=== PATIENT | male | born 1970 | race Caucasian/White ===

== ENCOUNTER 2021-02-20 13:41 | Outpatient (REF) | payer BC, SELFPAY ==
--- NOTE | ~2021-02-20 | XR_ITS ---
EXAMINATION: XR ANKLE, RIGHT CLINICAL INFORMATION: Pain COMPARISON: Previous x-ray July 2018 TECHNIQUE: AP, lateral, and mortise views of the right ankle. FINDINGS: Bone alignment is normal. No fracture or dislocation is seen. The ankle mortise is normal. There is a small osteophyte or accessory ossicle projecting over the posterior inferior talus. Soft tissues are unremarkable. XR/XR ankle RT min 3V IMPRESSION: Question small osteophyte or accessory ossicle projecting over the posterior inferior talus otherwise unremarkable exam.
== END 2021-02-20 13:42 | disposition home or self-care (01) ==
LOC: HO.HOSX 13:41
PROVIDERS: Visit Provider Physician Assistant
DX: M76.71 Peroneal tendinitis, right leg (principal)
CPT/HCPCS: 73610

== ENCOUNTER 2021-06-02 10:00 | Outpatient (RCR) | payer BC, SELFPAY ==
--- NOTE | 2021-04-14 11:53 | MHC.PT.EP ---
[facility] [place] [facility] [place] [facility] [place] [facility] [address] Eduarda Barrientos [address] [phone] F: [phone] F: [phone] F: [phone] F: [phone] Physical Therapy Plan of Care Date of Evaluation: Date of Surgery: n/a Diagnosis: peroneal tendonitis R Assessment: Patient is a 51 year old male presenting to PT with complaints of pain in his R lateral ankle. Pt reports onset of pain began worsening about 6 months ago due to insidious onset. He presents today with impairments in pain, ankle ROM, ankle strength, balance, gastroc muscle length, and hip strength. 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 Pt expresses long term care social worker goal of reducing pain, and is motivated to work towards this in PT. Clinical presentation today is most consistent with signs and sx associated with possible R peroneal tendonitis and pt will benefit from skilled PT to address the following problems and impairments noted upon evaluation: pain, ankle ROM, ankle strength, balance, gastroc muscle length, and hip strength. These problems limit the patient with the following functional activities: ambulation and sleep. The prescribed treatment plan of care is medically necessary. Co-morbidities of none were identified and taken into considerations of plan of care. Pt was educated on HEP, role of PT, prognosis, POC. Frequency and Duration: The patient will be seen 1 x week x 4 weeks Short Term Goals: Pt will demonstrate improved R ankle strength by 1/3 MMT in 2 weeks. Pt will demonstrate ability to SLS on R x 20 sec with min to mod ankle strategy in 2 weeks. Pt will demonstrate R ankle ROM equal B in 2 weeks for improved gait mechanics. Pt will demonstrate improved hip strength by 1/3 MMT in 2 weeks for improved lumbopelvic stability. Shelter Goals: Pt will demonstrate ability to ambulate with min to no pain in 4 weeks for improved tolerance to work. Pt will demonstrate ability to sleep through the night with min to no pain in 4 weeks for improved QOL. Pt will demonstrate improved LEFI score by 9 points in 4 weeks for improved functional mobility. Treatment Plan: Modalities to reduce pain, spasms and effusion. Manual therapy to restore motion and function. Therapeutic exercise to improve strength and flexibility. Neuromuscular re-education for posture and balance. Therapeutic activities to return to functional activities of daily living. Electronically signed by: Seema Lindsey, PT, DPT, ATC Please sign and return to therapist. Thank you for your referral.
== END 2021-11-07 09:51 | disposition home or self-care (01) ==
LOC: HO.PT 10:00
PROVIDERS: PCP Internal Medicine; Visit Provider Physician Assistant
DX: M76.71 Peroneal tendinitis, right leg (principal)
CPT/HCPCS: 97110; 97140; 97161; 97530

== ENCOUNTER 2021-11-10 09:29 | Outpatient (REF) | payer BC, SELFPAY ==
[2021-11-10 09:55] LABS: MANUAL DIFF FLAG NO
[2021-11-10 10:32] LABS: Basophils Percent Auto 0.8 % (0-2); Eosinophils Absolute Auto 0.2 X10*3/uL (0.0-0.4); Hemoglobin 14.9 g/dl (14.0-18.0); Imm Gran Abs Auto 0.02 X10*3/uL (0.00-0.03); Imm Gran Pct Auto 0.4 % (0.0-0.4); Lymphocytes Absolute Auto 1.3 X10*3/uL (1.2-4.9); Lymphocytes Percent Auto 27.6 % (20-40); Mean Corpuscular HGB Conc 33.1 g/dl (31.0-36.0); Mean Corpuscular Hemoglobin 27.9 pg (27.0-33.0); Mean Corpuscular Volume 84.1 fL (80.0-98.0); Mean Platelet Volume 8.9 fL (9.4-12.4); Monocytes Absolute Auto 0.4 X10*3/uL (0.1-1.2); Neutrophils Absolute Auto 2.8 x10*3/uL (2.0-8.3); Neutrophils Percent Auto 58.2 % (45-73); Platelet Count 312 X10*3/uL (160-400); Red Blood Count 5.35 X10*6/uL (4.60-5.80); Red Cell Distribution Width 13.8 % (11.0-16.0); White Blood Count 4.8 X10*3/uL (4.8-10.8)
[2021-11-10 11:08] LABS: Appearance Urine CLEAR; Color Urine YELLOW; Glucose Urine UA NEG (NEG); Leukocyte Esterase Urine NEG (NEG); Nitrite Urine NEG (NEG); Specific Gravity - Urine 1.015 (1.005-1.025); Urine Blood NEG (NEG); Urine Ketones NEG (NEG); Urine Protein NEG (NEG-TRACE)
[2021-11-10 11:15] LABS: Alanine Aminotransferase 19 U/L (0-40); Albumin Level 4.3 g/dL (3.5-5.0); Alkaline Phosphatase 103 U/L (39-117); Anion Gap 12 (12-20); Aspartate Amino Transferase 17 U/L (5-37); Bilirubin Total 1.1 mg/dL (0.0-1.0); Blood Urea Nitrogen 11 mg/dL (9-16); Calcium 9.5 mg/dL (8.4-10.2); Carbon Dioxide 26 mmol/L (22-29); Chloride 106 mmol/L (96-108); Cholesterol 229 mg/dL; Estimated Glomerular Filt Rate > 60; Glucose Fasting 91 mg/dL (60-99); HDL Cholesterol 39 mg/dL; LDL Cholesterol Calculated 172 mg/dl; Potassium 4.5 mmol/L (3.3-5.1); Sodium 139 mmol/L (135-145); Total Protein 7.2 g/dL (6.5-8.0); Triglycerides 93 mg/dL
== END 2021-11-10 09:30 | disposition home or self-care (01) ==
LOC: HO.LAB 09:29
PROVIDERS: PCP Internal Medicine; Visit Provider Internal Medicine
DX: Z00.00 Encounter for general adult medical examination without abnormal findings (principal); Z12.5 Encounter for screening for malignant neoplasm of prostate
CPT/HCPCS: 36415; 80053; 80061; 81003; 84153; 85025

== ENCOUNTER 2021-11-28 12:56 | Outpatient (REF) | payer BC, SELFPAY ==
--- NOTE | ~2021-11-28 | CT_ITS ---
EXAMINATION: CT PELVIS WITHOUT CONTRAST CLINICAL INFORMATION: Lower abdominal pain. COMPARISON: None TECHNIQUE: Helical scanning was performed with submillimeter collimation through the pelvis. Sagittal and coronal multiplanar 2-D reconstructions were obtained. This CT examination was performed using dose optimization techniques as appropriate, variously including the following: *Automated exposure control *Adjustment of mA and/or kV according to patient size (this includes techniques or standardized protocols for targeted exams where dose is matched to indication/reason for exam; i.e. extremities or head) *Use of iterative reconstruction technique DLP: 489 mGy-cm FINDINGS: PELVIS: There is scattered stool, diverticuli and gas seen throughout the colon without distention. The small bowel loops are normal caliber. The appendix is not seen. No abnormal pelvic lymph node or mass seen. There is no free fluid. The prostate is normal size. OSSEOUS STRUCTURES: No lytic or sclerotic process seen. CT/CT pelvis wo con IMPRESSION: Unremarkable CT pelvis exam.
== END 2021-11-28 12:57 | disposition home or self-care (01) ==
LOC: HO.CT 12:56
PROVIDERS: Visit Provider Surgery
DX: R10.30 Lower abdominal pain, unspecified (principal); Z98.890 Other specified postprocedural states; Z87.19 Personal history of other diseases of the digestive system
CPT/HCPCS: 72192

== ENCOUNTER 2021-12-10 07:51 | Outpatient (REF) | payer BC, SELFPAY ==
[2021-12-10 10:50] LABS: C Reactive Protein 0.04 mg/dL (< or = 0.50); Cholesterol 177 mg/dL; HDL Cholesterol 30 mg/dL; LDL Cholesterol Calculated 129 mg/dl; Triglycerides 93 mg/dL
[2021-12-10 11:13] LABS: Syphilis Screen Nonreactive (Nonreactive)
[2021-12-10 11:15] LABS: Erythrocyte Sedimentation Rate 2 MM/HR (0-15)
[2021-12-10 12:06] LABS: CT PCR NOT DETECTED (Not Detect.); NG PCR NOT DETECTED (Not Detect.)
== END 2021-12-10 07:52 | disposition home or self-care (01) ==
LOC: HO.10HDL 07:51
PROVIDERS: Visit Provider Internal Medicine
DX: Z11.3 Encounter for screening for infections with a predominantly sexual mode of transmission (principal); E78.00 Pure hypercholesterolemia, unspecified; N45.1 Epididymitis
CPT/HCPCS: 80061; 85652; 86140; 86780; 87491; 87591

== ENCOUNTER 2022-01-20 14:43 | Outpatient (REF) | payer BC, SELFPAY ==
--- NOTE | ~2022-01-20 | US_ITS ---
EXAMINATION: US SCROTUM CLINICAL INFORMATION: Right scrotal pain. COMPARISON: None TECHNIQUE: A sonogram of the scrotum was performed assessing donahue-scale appearance and color Doppler flow. Spectral Doppler analysis of the arterial and venous flow were performed in the testes bilaterally. FINDINGS: RIGHT: Right testicle measures 2.8 x 1.8 x 2.7 cm, volume 6.9 mL. Echotexture is normal. There are multiple punctate calcifications suggestive of microlithiasis. There is a 2 mm hypoechoic lesion in the right testicle with anechoic center and slightly thickened wall suggestive of a complex cyst. No other focal lesion. Spectral Doppler analysis of the arterial and venous flow is normal in the right testis. Right epididymal head is normal in size. There is a 4 mm right epididymal head cyst. There is a small right hydrocele. No right varicocele is seen. Right epididymal Doppler flow is normal. LEFT: Left testicle measures 3.4 x 2.0 x 2.3 cm, volume 8.5 mL. Echotexture is normal. There are multiple punctate calcifications suggestive of microlithiasis. No focal lesion. Spectral Doppler analysis of the arterial and venous flow is normal in the left testis. Left epididymal head is normal in size. There is a 4 mm epididymal head cyst. There is a small left hydrocele. There is an appendix testis. No left varicocele is seen. Left epididymal Doppler flow is normal. 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 2 mm hypoechoic lesion in the right testicle suggestive of a complex cyst. Given increased risk of malignancy, urology consultation and ultrasound follow-up in 3-6 months is recommended. Bilateral epididymal head cysts. Small bilateral hydroceles.
== END 2022-01-20 14:44 | disposition home or self-care (01) ==
LOC: HO.US 14:43
PROVIDERS: Visit Provider Internal Medicine
DX: N50.82 Scrotal pain (principal)
CPT/HCPCS: 76870

== ENCOUNTER 2022-04-27 13:50 | Outpatient (REF) | payer BC, SELFPAY ==
--- NOTE | ~2022-04-27 | US_ITS ---
EXAMINATION: US SCROTUM CLINICAL INFORMATION: Right scrotal pain. COMPARISON: Ultrasound scrotum 01/20/2022. TECHNIQUE: A sonogram of the scrotum was performed assessing donahue-scale appearance and color Doppler flow. Spectral Doppler analysis of the arterial and venous flow were performed in the testes bilaterally. FINDINGS: RIGHT: Right testicle measures 3.4 x 1.8 x 2.7 cm, volume 8.5 mL. Testicular microlithiasis is present. 3 mm right testicular cyst, previously measured 2 mm and is less complex in appearance on today's exam.. Spectral Doppler analysis of the arterial and venous flow is normal in the right testis. Right epididymal head is remarkable for a 5 mm epididymal head cyst. No right varicocele is seen. Trace fluid within the physiologic spectrum of normal, no ashley hydrocele. Right epididymal Doppler flow is normal. No right inguinal hernia. LEFT: Left testicle measures 3.7 x 1.8 x 2.2 cm, volume 7.5 mL. Testicular microlithiasis is present. Spectral Doppler analysis of the arterial and venous flow is increased in the left testis. Left epididymal head is remarkable for epididymal head cysts measuring up to 3 mm. Trace left hydrocele. No left varicocele is seen.. Incidentally noted left appendix testis. Left epididymal Doppler flow is increased. US/US scrotum IMPRESSION: Left testis and epididymis appear hypervascular, which can be seen in the setting of epididymoorchitis if clinical symptoms are appropriate. A trace associated hydrocele is present. Testicular microlithiasis is present, recommend continued urologic management. A 3 mm testicular lesion which appears to reflect a cyst is similar to prior, previously 2 mm. Additional incidental findings are as detailed above.
== END 2022-04-27 13:51 | disposition home or self-care (01) ==
LOC: HO.US 13:50
PROVIDERS: Visit Provider Internal Medicine
DX: N50.82 Scrotal pain (principal)
CPT/HCPCS: 76870

== ENCOUNTER 2022-08-28 08:38 | Day surgery (SDC) | payer BC, SELFPAY ==
--- NOTE | 2022-08-27 10:49 | HO.ANESPROP2 ---
Documented by User: Gladis Johnson NP 08/27/22 10:50 HPI - Anesthesia Eval Consult details Narrative: 52yo M for Colonoscopy PMFSH Active Problems Active Problems: All Active Problems (Updated 11/19/21 @ 13:47 by Wai Bee MD) S/P right inguinal hernia repair (Acute) Inguinodynia (Acute) Peroneal tendonitis of right lower extremity (Acute) Family History Family History Father Lung cancer Surgical History Surgical History Appendicitis H/O hernia repair Social History Social History Patient Tobacco Use Status: Never used Tobacco Are you DNR?: No Advance Directives: No Advance Directives Information Provided: Yes Nutrition Risks: No Nutritional Risk 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 Allergies Allergy/AdvReac Type Severity Reaction Status Date / Time amoxicillin [AMOXICILLIN] Allergy Unknown HIVES AND Verified 12/03/21 15:01 THROAT CLOSES Home Medications Medication Instructions Recorded Confirmed Last Taken Type acetaminophen 500 mg tablet 500 mg PO Q6H PRN 02/20/21 11/19/21 Unknown History (Tylenol Extra Strength) tamsulosin 0.4 mg capsule 0.4 mg PO BEDTIME 08/27/22 08/27/22 Unknown History Exam Exam Date and Time: August 27, 2022 1049 Assessment and Plan Assessment Anesthesia Assessment: Chart Reviewed Documented by User: Neeru Pena MD 08/28/22 10:24 PMFSH Family History Family History Father Lung cancer Family history of problems with anesthesia: No Surgical History Surgical History Appendicitis H/O hernia repair History of Problems with Anesthesia: No Social History Social History Patient Tobacco Use Status: Never used Tobacco Are you DNR?: No Advance Directives: No Advance Directives Information Provided: Yes Nutrition Risks: No Nutritional Risk 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 Allergies Allergy/AdvReac Type Severity Reaction Status Date / Time amoxicillin [AMOXICILLIN] Allergy Unknown HIVES AND Verified 12/03/21 15:01 THROAT CLOSES Home Medications Medication Instructions Recorded Confirmed Last Taken Type acetaminophen 500 mg tablet 500 mg PO Q6H PRN 02/20/21 11/19/21 Unknown History (Tylenol Extra Strength) tamsulosin 0.4 mg capsule 0.4 mg PO BEDTIME 08/27/22 08/27/22 Unknown History Assessment and Plan Assessment Anesthesia Assessment: Anesthesia Plan Discussed Final Anesthetic Review Family History of Problems with Anesthesia: No History of Problems with Anesthesia: No NPO: Yes ASA Class: II Final Preanesthetic Review: No Changes in Pt Med Stat, Meds/Allgs Chart Reviewed, Consent Obtained/Reviewed and Anes Risks/Benef Reviewed Patient Risk: Low Procedure Risk: Low Anesthetic Plan Anesthetic Plan: MAC: Disposition: Standard PACU
[2022-08-28 06:14] VITALS: BMI 23.8
--- OUTSIDE RECORDS SUMMARY | 2022-08-28 08:40 | XMS_ITS ---
Author Name Ender Zee Address [address] [place] [address] Organization [facility] Address [address] [place] [address] Care Team Providers Care Air Brush Operator Name Role Phone Ender Zee Unavailable [phone] PROBLEMS ALLERGIES ENCOUNTERS IMMUNIZATIONS No Known Immunizations SOCIAL HISTORY REASON FOR REFERRAL FUNCTIONAL STATUS PLAN OF CARE VITAL SIGNS MEDICATIONS PROCEDURES RESULTS No Results REASON FOR VISIT Insurance Providers
[2022-08-28 09:37] VITALS: BP 123/89; PULSE 74; RESP 18; TEMP 36.1; O2SAT 97
[2022-08-28] MEDS: Lactated Ringers 1,000 ML 100 ML IVCONT (09:46)
[2022-08-28] MEDS: Sodium Phosphate,Mono-Dibasic 133 ML ENEMA PR ×2 (09:47→10:02)
--- NOTE | 2022-08-28 10:30 | PC.NURSE ---
2 fllets given per order with first results liquid brown second fleet results liquid tanish pt aware careplan
[2022-08-28 11:58] VITALS: BP 112/68; PULSE 64; RESP 16; TEMP 36.1; O2SAT 97
--- NOTE | 2022-08-28 11:58 | P.BOP_ITS ---
Brief Operative Note Date of Service: 08/28/22 Pre-op diagnosis: Screening Post-op diagnosis: other (Colon polyps) Procedure: Colonoscopy to the cecum and TI with hot snare polypectomy x 2 Surgeon: Ender Zee Anesthesia: MAC Was an Director Environmental used for this Procedure?: No Estimated blood loss (mL): 0 Pathology: other (A. Polyp at 30cm B. Polyp at 20cm) Condition: stable Disposition: PACU
[2022-08-28 12:13] VITALS: BP 132/88; PULSE 62; RESP 16; TEMP 36.2; O2SAT 100
--- NOTE | 2022-08-28 15:54 | OP_ITS ---
DATE OF SERVICE: 08/28/2022 SURGEON: Ender Zee MD PREOPERATIVE DIAGNOSIS: Colorectal cancer screening. POSTOPERATIVE DIAGNOSIS: PROCEDURE PERFORMED: Colonoscopy to the cecum and terminal ileum with hot snare polypectomy x2. ESTIMATED BLOOD LOSS: COMPLICATIONS: ANESTHESIA: Monitored anesthesia care. ASSISTANTS: SPECIMENS: POSTOPERATIVE DIAGNOSES: Colorectal cancer screening, colon polyps, diverticulosis, and internal hemorrhoids. INDICATION: The patient presents for evaluation of colorectal cancer screening. Full consent has been obtained from him for this, including risks of bleeding and perforation. DESCRIPTION OF PROCEDURE: The patient was placed in the left lateral decubitus position. The digital rectal exam revealed no abnormalities. The Olympus video pediatric colonoscope was entered into the rectum and advanced easily to the cecum. Once in the cecum, I did identify normal-appearing cecal pouch with appendiceal orifice and a normal-appearing ileocecal valve. The terminal ileum was cannulated and appeared normal. The scope was withdrawn back in the colon. After copious irrigation and suctioning, the cecum was well visualized and appeared normal without any sign of mass or ulceration. The scope was then slowly withdrawn assessing all mucosal surfaces carefully. Again, after lot of irrigation, suctioning, and preparation, for the most part was quite good throughout the entire colon. At 30 cm, there was an approximately 8 mm polyp which was removed by hot snare polypectomy, recovered by suction. At 20 cm, there was an approximately 5 mm polyp which was removed by hot snare polypectomy and recovered as well. Both polypectomy sites appeared clean, without any sign of residual polyp nor bleeding. I did not visualize any other polyps, colitis, nor angiodysplasia. There was a mild amount of sigmoid diverticulosis. In the rectum, the scope was retroflexed visualizing internal hemorrhoids, but no other pathology. The rectal mucosa appeared normal. The scope was straightened and withdrawn from the patient. He tolerated the procedure well and was returned to the recovery area in stable condition. IMPRESSION: 1. Colon polyps. 2. Diverticulosis. 3. Internal hemorrhoids. PLAN: The results of the pathology will be checked. I would recommend a repeat colonoscopy in 5 years for further surveillance. He was advised not to use any aspirin or NSAIDS for 1 week. Ender Zee MD RMW/WILLIAML / [id number]
== END 2022-08-28 13:17 | disposition home or self-care (01) ==
PROVIDERS: PCP Internal Medicine; Visit Provider Internal Medicine
PROC: 0DJD8ZZ Inspection of Lower Intestinal Tract, Via Natural or Artificial Opening Endoscopic (ICD-10-PCS; CPT 45378; principal; 2022-08-28 10:30)
DX: Z12.11 Encounter for screening for malignant neoplasm of colon (principal); D12.5 Benign neoplasm of sigmoid colon; K57.30 Diverticulosis of large intestine without perforation or abscess without bleeding; K64.8 Other hemorrhoids; Z88.1 Allergy status to other antibiotic agents; Z79.899 Other long term (current) drug therapy
CPT/HCPCS: 45385; 88305; J1100

== ENCOUNTER → 2022-10-05 09:55 | Outpatient (REF) | payer BC, SELFPAY | LOC: HO.SL 09:55 | PROVIDERS: PCP Internal Medicine; Visit Provider Internal Medicine | DX: G47.33 Obstructive sleep apnea (adult) (pediatric) (principal) | CPT/HCPCS: 95806 ==

== ENCOUNTER → 2022-11-02 14:51 | Outpatient (BNVA) | payer BC, SELFPAY | PROVIDERS: PCP Internal Medicine; Referring Provider Internal Medicine; Visit Provider Internal Medicine | DX: R00.2 Palpitations (principal); R06.02 Shortness of breath | CPT/HCPCS: 93005 ==

== ENCOUNTER 2022-11-05 08:05 | Outpatient (REF) | payer BC, SELFPAY ==
[2022-11-05 11:24] LABS: Cholesterol 211 mg/dL; HDL Cholesterol 36 mg/dL; LDL Cholesterol Calculated 147 mg/dl; Triglycerides 144 mg/dL
== END 2022-11-05 08:06 | disposition home or self-care (01) ==
LOC: HO.10HDL 08:05
PROVIDERS: Visit Provider Internal Medicine
DX: E78.00 Pure hypercholesterolemia, unspecified (principal)
CPT/HCPCS: 36415; 80061

== ENCOUNTER → 2022-11-23 08:52 | Outpatient (REF) | payer BC, SELFPAY ==
--- NOTE | 2022-11-23 08:56 | CA_ITS ---
Transthoracic Echocardiogram Patient (Last, First, Middle): Jamarcus Pizarro, Gender: Male Date of : 1970 Age: 52 Procedure Date: 11/23/2022 Procedure Type: Transthoracic Echocardiogram Location: OP Height: 177.8 cm Weight: 74.84 kg BSA: 1.92 m2 Heart Rate: bpm BP: 108 / 72 mmHg Seam Finisher: TAMMIE Referring MD: Henry Jacome MD Symptoms: R06.02 - Shortness of breath Study Quality: Adequate ECG Rhythm: Sinus Conclusions: - The left ventricular systolic function is normal. The calculated ejection fraction is 57% by biplane method. - No obvious valvular pathology seen on this study. Findings Left Ventricle Normal left ventricular cavity size. There is normal left ventricular wall thickness. The left ventricular systolic function is normal. The calculated ejection fraction is 57% by biplane method. There is no evidence of regional wall motion abnormalities. Diastolic function is normal for age. LV peak GLS -16.2%, but probable underestimation. Right Ventricle Normal right ventricular cavity size and systolic function. Atria Both atria are normal in size. Aortic Valve There is a normal trileaflet aortic valve. There is mild calcification of the aortic valve. There is no aortic valve stenosis. There is no aortic valve regurgitation. Mitral Valve The mitral valve appears normal. There is trace mitral valve regurgitation. There is no mitral valve stenosis. Pulmonic Valve The pulmonic valve is likely normal. Tricuspid Valve Normal tricuspid valve structure. There is mild tricuspid valve regurgitation. There is no evidence of pulmonary hypertension. Great Vessels The asc aorta is normal in size. Venous The inferior vena cava is normal in size and collapses greater than 50% with inspiration. Pericardium/Pleural There is no evidence of pericardial effusion. Prior Study Comparison No prior study available for comparison. Recommendations, Care & Conclusions No obvious valvular pathology seen on this study. Measurements 2D Linear Measurements IVSd: 1.03 0.6-0.9/0.6-1.0 cm LVIDd: 4.19 3.9-5.3/4.2-5.9 cm LVIDd Index: 2.18 2.4-3.2/2.2-3.1 cm/m2 LVIDs: 2.80 2.0-3.6 cm LVPWd: 0.93 0.7-1.1 cm LA Diam: 2.70 2.7-3.8/3.0-4.0 cm LAIDs Index: 1.41 1.5-2.3 cm/m2 LV Mass: 165.17 67-162/88-224 g LV Mass Index: 86.03 43-95/49-115 g/m2 LVOT Diam: 1.90 3.0+(-)1.3 cm 2D Systolic Function EF 4C: 57.70 >55% EF 2C: 56.40 >55% EF BiP: 57.40 >55% Mitral Valve MV Pk E: 0.67 MV PK A: 0.41 MV Decel Time: 253.00 E/A: 1.70 E'Lateral: 12.00 E'Medial: 7.07 E/E' Med: 9.50 E/E' Lat: 5.60 PHT: 74.00 MVA PHT: 2.97 Decel Rapides: 2.66 Aortic Valve AoV Pk Seven: 1.17 AoV Mn Seven: 0.81 AoV VTI: 0.26 AoV Pk Grad: 5.00 Aov Mn Grad: 3.00 VERNELL Cont.VTI: 2.10 LVOT LVOT Pk Seven: 0.92 LVOT Mn Seven: 0.60 LVOT VTI: 0.19 LVOT Pk Grad: 3.00 LVOT Mn Grad: 2.00 LVOT Diam: 1.90 LVOT Area: 2.84 Diastolic Function MV Pk E: 0.67 MV Pk A: 0.41 E/A: 1.70 E'Medial: 7.07 E/E' Med: 9.50 E' Laterial: 12.00 E/E' Lat: 5.60 Right Ventricle TAPSE (mm): 20.30 TVS' Seven: 13.10 Tricuspid Valve TR Pk Seven: 1.84 TR Pk Grad: 14.00 RA Press: 3.00 RVSP: 17.00 Great Vessels Aorta Sinus of Valsalva: 3.38 2.0-3.[address] Ridge: 2.70 1.7-3.4 cm Ao Asc: 3.10 2.1-3.4 cm Ao Arch: 2.80 Updated in Other Vendor System with Status of Final Henry Jacome MD electronically signed on 11/24/2022 3:54:08 PM with status of Final
== END ==
LOC: HO.CARD 08:52
PROVIDERS: Visit Provider Internal Medicine
DX: R00.2 Palpitations (principal); R06.02 Shortness of breath
CPT/HCPCS: 93242; 93306; 93356

== ENCOUNTER 2023-01-18 13:02 | Outpatient (AMB) | payer BC, SELFPAY ==
[2023-01-18 13:13] VITALS: BP 102/70; PULSE 75; BMI 23.7
--- NOTE | 2023-01-18 13:13 | MHC.OFFVIS ---
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 Was recently seen in consultation. The referral was initially made for Repatha, but his LDL was only in the 120s. Patient himself has no history of vascular disease. Then it was realized that another patient's chart was scanned into the current patient. Hence that referral was not accurate. Upon discussion with PCP, patient had rather reported some nonspecific symptoms like palpitations, shortness of breath at different times and it was felt that he still warranted consultation. Subsequently, patient underwent echocardiogram and Holter. Overall, he feels fine. Absolutely no anginal-type symptoms or anginal equivalents. No palpitations. Sometimes, he may feel short of breath running up flights of stairs but nothing on anything less intense. 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 Review of Systems Const Denies weakness ENT Denies dizziness Card Denies chest pain, Denies chest pain with activity, Denies syncope, Denies rapid heart rate, Denies pedal edema, Denies edema, Denies leg edema, Denies lightheadedness, Denies palpitations, Denies dyspnea, Denies dyspnea on exertion and Denies orthopnea Resp Denies cough, Denies dyspnea and Denies dyspnea on exertion GI Denies hematochezia and Denies change in stool character Musc Denies abnormal gait, Denies muscle cramps, Denies muscle weakness, Denies numbness, Denies radiating pain into limb and Denies tingling Neuro Denies abnormal gait, Denies dizziness, Denies syncope, Denies numbness, Denies tingling and Denies weakness Endo Denies palpitations Physical Exam Vital Signs: Last Vital Signs Pulse 75 01/18/23 13:13 BP 102/70 01/18/23 13:13 BMI result Body Mass Index 23.7 Assessment & Plan Assessment & Plan (1) Heart palpitations: Code(s): R00.2 - Palpitations Plan Initial referral for Hammad is incorrect as that belonged to a different patient and a different patient's chart has been scanned into the current medical record. This was brought to the attention of environmental technical officer and then removed. Cardiac studies were completed otherwise including echocardiogram and Holter. Echocardiogram with LVEF of 57%. No significant structural abnormalities. No significant valvular issues. No evidence of pulmonary hypertension. In the Holter, underlying rhythm was sinus with extremely rare ectopy with minimal burden. No specific implications from this. Overall, reassurance only. Discussed about angina and presentation and what to look out for. In any such instance, he will contact us immediately. Otherwise, follow up with his own PCP. Coding Level of Care Code Est Pt Level 3 (14806) Diagnoses Heart palpitations R00.2
== END 2023-01-18 15:27 | disposition home or self-care (01) ==
PROVIDERS: PCP Internal Medicine; Referring Provider Internal Medicine; Visit Provider Internal Medicine
DX: R00.2 Palpitations (principal)
CPT/HCPCS: 99213

== ENCOUNTER → 2023-01-18 13:02 | Outpatient (BNVA) | payer BC, SELFPAY | PROVIDERS: PCP Internal Medicine; Referring Provider Internal Medicine; Visit Provider Internal Medicine ==

== ENCOUNTER 2023-02-19 21:55 | Emergency (ER) | payer BC, SELFPAY ==
[2023-02-19 22:11] VITALS: BP 128/89; PULSE 86; RESP 18; TEMP 37; O2SAT 98; BMI 23.7
--- OUTSIDE RECORDS SUMMARY | 2023-02-19 23:06 | XMS_ITS | Patient Health Record ---
Author Name Unknown Organization [facility] Address [address] [place] [address] Care Team Providers Care Fancy Sewer Name Role Phone Nilesh Rivera MD Primary Care Provider Ender Becerra Unavailable [phone] ALLERGIES Allergen (clinical drug ingredient) Drug/Non Drug Allergy documented on EMR Reaction Allergy Type Onset Date Status amoxicillin Amoxicillin Unknown Drug Allergy Act florecita hay fever (uncoded) Unknown Allergy Active RESULTS Component Value Reference Range Notes Pathology Reviewed date:09/07/2022 08:57:21 AM Interpretation: Performing Lab:[facility], [address] [place] [id number] Notes/Report: REASON FOR REFERRAL No Information MEDICATIONS Medication SIG (Take, Route, Fr equency, Duration) Notes Start Date End Date Status Tamsulosin HCl 0.4 MG Oral for 30 Active IMMUNIZATIONS Vaccine Route Administration Date Status Comme nts Influenza Unknown 07/01/2022 Refused SOCIAL HISTORY Tobacco Use: Social History Observation Description Date Details (start date - stop date) Never Smoker NA - NA Sex Assigned At : Social History Observation Description Sex Assigned At Unknown Tobacco Use/Smoking Question Answer Notes Patient is a nonsmoker Alcohol Screen Question Answer Notes Did you have a drink containing alcohol in the p ast year? No Points 0 Interpretation Negative PROBLEMS Problem Type ICD Code Onset Dates Problem Status W/U Status Risk SNOMED Code Notes Problem Colon cancer screening (Z12.11) Active confirmed 510613952 Problem Preprocedural examination (Z01.818) Active confirmed 593360262149015 Problem Diverticulosis of large intestine without perforation or abscess without bleeding (K57.30) Active confirmed Diverticul ar disease of colon (724806375) Encounters Encounter Location Date Provider Diagnosis [facility] Outpatient [address] [place] [phone] 08/28/2022 Ender Zee Encounter for screen ing colonoscopy Z12.11 ; Colon polyp K63.5 ; Other hemorrhoids K64.8 and Diverticulosis of large intestine without perforation or abscess without bleeding K57.30 [facility] [address] [place] [address] 07/01/2022 Ender Zee Colon cancer screeni ng Z12.11 and Preprocedural examination Z01.818 ASSESSMENTS Encounter Date Diagnosis Assessment Notes Treatment Notes Treatment Clinical Notes 08/28/2022 Encounter for screening colonoscopy (ICD-10 - Z12.11) 08/28/2022 Colon polyp (ICD-10 - K63.5) 07/01/2022 Colon cancer screening (ICD-10 - Z12.11) 07/01/2022 Preprocedural examination (ICD-10 - Z01.818) 08/28/2022 Other hemorrhoids (ICD-10 - K64.8) 08/28/2022 Diverticulosis of large intestine without perforation or abscess without bleeding (ICD-10 - K57.30) PLAN OF TREATMENT Future Test Test Name Order Date COLONOSCOPY 07/01/2022 Insurance Providers Payer Name Payer Address Payer Phone Subscriber Number Group Number Insured Name Patient Relationship to Insured Coverage Start Date Coverage End Date [facility] [address] [place] [address] [id number] BHAVESH MARIJA Self - patient is the insured MEDICAL (GENERAL) HISTORY Medical History History ICD Code Denies MD,DM,CVA,Lung disease,renal dise ase Surgical History Surgery Date(Month/Year) Right inguinal hernia Dr. Robi Ryan
== END 2023-02-19 23:04 | disposition left against medical advice (07) ==
LOC: HO.ED 23:04
PROVIDERS: Emergency Provider Emergency Medicine
DX: U07.1 COVID-19 (principal)
CPT/HCPCS: 99281

== ENCOUNTER 2024-01-13 13:30 | Emergency (ER) | payer BC, SELFPAY ==
--- NOTE | ~2024-01-13 | CT_ITS ---
EXAMINATION: CT CHEST, ABDOMEN AND PELVIS WITH CONTRAST CLINICAL INFORMATION: Nausea and fever. COMPARISON: 11/28/2021 and 11/10/2016 TECHNIQUE: Multidetector volumetric imaging was performed of the chest, abdomen and pelvis following administration of 100 mL Omnipaque 300 intravenous contrast. Oral contrast was administered. Sagittal and coronal reformatted images were obtained on the technologist's workstation. This CT examination was performed using dose optimization techniques as appropriate, variously including the following: *Automated exposure control *Adjustment of mA and/or kV according to patient size (this includes techniques or standardized protocols for targeted exams where dose is matched to indication/reason for exam; i.e. extremities or head) *Use of iterative reconstruction technique DLP: 144 mGy-cm FINDINGS: CHEST: LUNGS: Airspace consolidation involving the superior segment right lower lobe with air bronchograms. Central airways are patent. PLEURA: No pleural effusion. MEDIASTINUM: Imaged thyroid gland is unremarkable. No bulky axillary, hilar or mediastinal lymphadenopathy. Great vessels are of normal caliber. Heart size is normal. No pericardial effusion. CORONARY ARTERY CALCIFICATION: No coronary artery calcification appreciated. CHEST WALL: No acute abnormality. ABDOMEN AND PELVIS: LIVER AND BILIARY TREE: Unremarkable. GALLBLADDER: Unremarkable. PANCREAS: Unremarkable. SPLEEN: Unremarkable. ADRENAL GLANDS: Unremarkable. KIDNEYS AND URETERS: Unremarkable. GASTROINTESTINAL TRACT: Small hiatal hernia. Diverticular disease of the sigmoid colon. No small bowel obstruction. VASCULAR: Normal caliber abdominal aorta. LYMPH NODES: No bulky lymphadenopathy. FREE FLUID: No free fluid. BLADDER: Unremarkable. PELVIC VISCERA: Unremarkable. OSSEOUS STRUCTURES: No destructive bone lesions. CT/CT chest wo IV con IMPRESSION: Right lower lobe pneumonia. Follow-up until resolution is advised. No acute abnormality in the abdomen or pelvis.
--- NOTE | ~2024-01-13 | XR_ITS ---
EXAMINATION: XR CHEST CLINICAL INFORMATION: Cough. COMPARISON: 03/25/2018 TECHNIQUE: 2 views of the chest were obtained. FINDINGS: The lungs are well expanded. The left hemithorax is clear. There is airspace disease and consolidation in the right lower lobe. No pleural effusion. Cardiac silhouette is unchanged. XR/XR chest 2V IMPRESSION: Right lower lobe pneumonia. Follow-up until resolution is advised.
--- NOTE | ~2024-01-13 | CT_ITS ---
EXAMINATION: CT CHEST, ABDOMEN AND PELVIS WITH CONTRAST CLINICAL INFORMATION: Nausea and fever. COMPARISON: 11/28/2021 and 11/10/2016 TECHNIQUE: Multidetector volumetric imaging was performed of the chest, abdomen and pelvis following administration of 100 mL Omnipaque 300 intravenous contrast. Oral contrast was administered. Sagittal and coronal reformatted images were obtained on the technologist's workstation. This CT examination was performed using dose optimization techniques as appropriate, variously including the following: *Automated exposure control *Adjustment of mA and/or kV according to patient size (this includes techniques or standardized protocols for targeted exams where dose is matched to indication/reason for exam; i.e. extremities or head) *Use of iterative reconstruction technique DLP: 144 mGy-cm FINDINGS: CHEST: LUNGS: Airspace consolidation involving the superior segment right lower lobe with air bronchograms. Central airways are patent. PLEURA: No pleural effusion. MEDIASTINUM: Imaged thyroid gland is unremarkable. No bulky axillary, hilar or mediastinal lymphadenopathy. Great vessels are of normal caliber. Heart size is normal. No pericardial effusion. CORONARY ARTERY CALCIFICATION: No coronary artery calcification appreciated. CHEST WALL: No acute abnormality. ABDOMEN AND PELVIS: LIVER AND BILIARY TREE: Unremarkable. GALLBLADDER: Unremarkable. PANCREAS: Unremarkable. SPLEEN: Unremarkable. ADRENAL GLANDS: Unremarkable. KIDNEYS AND URETERS: Unremarkable. GASTROINTESTINAL TRACT: Small hiatal hernia. Diverticular disease of the sigmoid colon. No small bowel obstruction. VASCULAR: Normal caliber abdominal aorta. LYMPH NODES: No bulky lymphadenopathy. FREE FLUID: No free fluid. BLADDER: Unremarkable. PELVIC VISCERA: Unremarkable. OSSEOUS STRUCTURES: No destructive bone lesions. CT/CT abdomen pelvis w IV con IMPRESSION: Right lower lobe pneumonia. Follow-up until resolution is advised. No acute abnormality in the abdomen or pelvis.
[2024-01-13 14:04] VITALS: BP 122/79; PULSE 112; RESP 16; TEMP 38.3; O2SAT 96; BMI 24.3
--- NOTE | 2024-01-13 14:04 | ED_ITS ---
HPI - Nausea/Vomiting/Diarrhea General Chief complaint: Fever Stated complaint: vomiting Time Seen by Provider: 01/13/24 16:04 Source: patient Mode of arrival: ambulatory Limitations: no limitations History of Present Illness ED Provider: Steven SNEED HPI Narrative: 33-year-old male past medical history significant for inguinal tinea, heart palpitations, presenting w/ nausea, vomiting, non productive cough, fevers, chills, fatigue, malaise X 4 days. Patient reports he thought he had a virus however it has not been improving. Patients states he was recently prescribed ABX for tooth ache but unsure the name of ABX. He reports burning in the chest w/ vomiting but no particular cp. No sick contacts. Denies sob, cough, abd pain, headache, vision changes, dizziness. Related Data Home Medications ?Medication ?Instructions ?Recorded ?Confirmed acetaminophen 500 mg tablet 500 mg PO Q6H PRN 02/20/21 01/18/23 (Tylenol Extra Strength) Previous Rx's ?Medication ?Instructions ?Recorded albuterol sulfate 90 mcg/actuation 2 inh inhalation Q4-6H PRN 01/13/24 breath activated powder inhaler shortness of breath or wheezing #1 ea azithromycin 250 mg tablet See Rx Instructions PO .COMPLEX #6 01/13/24 tabs doxycycline hyclate 100 mg capsule 100 mg PO BID 10 days #20 caps 01/13/24 ondansetron 4 mg disintegrating 4 mg PO Q6H PRN nausea and 01/13/24 tablet vomiting #14 tabs prednisone 20 mg tablet 40 mg (2 x 20 mg) PO DAILY 5 days 01/13/24 #10 tabs Allergies Allergy/AdvReac Type Severity Reaction Status Date / Time amoxicillin [AMOXICILLIN] Allergy Unknown HIVES AND Verified 01/13/24 14:10 THROAT CLOSES Review of Systems 2 Review of Systems: Yes all other systems are reviewed and are negative PMFSH Past Medical History Attestation statement: The following information was validated with the patient. 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 Physical Exam 2 Vital Signs: Vital Signs: Last Vital Signs Temp 98.6 F 01/13/24 16:00 Pulse 85 01/13/24 16:00 Resp 18 01/13/24 16:00 BP 128/89 01/13/24 16:00 Pulse Ox 98 01/13/24 16:00 O2 Del Method Room Air 01/13/24 16:00 BMI result Body Mass Index 24.3 vss Appearance: Alert.? Oriented X3.? No acute distress.? Head: Normocephalic, atraumatic, no step-offs or deformities Eyes: Pupils equal, round and reactive to light.? Neck: Normal inspection.? Neck supple.? CVS: Normal heart rate and rhythm.? Pulses normal.? Respiratory: No respiratory distress.? Breath sounds normal.? Abdomen: Soft and nontender.? Skin: Skin warm and dry.? Normal skin color.? Normal skin turgor.? Extremities: No lower extremity edema.? No calf ttp. 5/5 strength to bilateral upper and lower extremities Back: No midline tenderness, no C-spine tenderness, full range of motion, no CVA tenderness bilaterally Neuro: Oriented X 3.? No motor deficit.? No sensory deficit. CN 2-12 intact Course Course Course Narrative: This is a Rapid Medical Examination (RME) performed by Benigno Tristan PA-C in triage. Full HPI, ROS, assessment and treatment plan per primary provider in the Main ED. 53 yo male presents to the ER for evaluation of dehydration and a virus per his PCP. He states he has been vomiting for 3 days and new onset nonbloody diarrhea today. COVID negative at home. Dr. Mandel gave him abx for a toothache but then he developed flu like symptoms yesterday so he stopped the abx. +fever yesterday and new onset cough today. HR was [address] Mandel told him to come to the ER. Temp 101 in triage w/ HR 110s. Abd is soft and nontender. Plan: labs, lactic cultures, IVF and antiemetics Reevaluation(s) Reevaluation #1: CBC w/ no acute findings needing intervention. Chemistry unremarkable. Lipase WNL. Covid negative. UA, CT abdomen, CXR, ESTEBAN, flu test pending. ATBX will be given prophylactically. Time: 16:17 Reevaluation #2: CT chest with right lower lobe pneumonia will have him follow up with his PCP. CT abdomen pelvis unremarkable. This is likely viral illness with now pneumonia. Will treat with antibiotics, steroids, inhaler. Patient to be discharged home. Educated patient on diagnosis and treatment plan, answered all question, patient verbalizes understanding. At this time patient will be discharged home, advised to return with new or worsening symptoms. Educated on worrisome signs and symptoms and when to return. At this time I feel comfortable discharge home. Time: 18:05 Medications Administered Discontinued Medications Generic Name Dose Route Start Last Admin Trade Name Kwadwoq PRN Reason Stop Dose Admin Acetaminophen 975 mg 01/13/24 14:08 01/13/24 14:12 Acetaminophen 325 Mg Tablet PO 01/13/24 14:09 975 mg ONCE ONE Administration Lactated Ringer's 1,000 mls @ 999 mls/hr 01/13/24 14:15 01/13/24 18:01 Lr IV 01/13/24 15:15 Infused .Q1H1M DALLIN Infusion Sodium Chloride 1,000 mls @ 999 mls/hr 01/13/24 16:15 01/13/24 18:00 Ns IV 01/13/24 17:15 999 mls/hr .Q1H1M DALLIN Administration Metronidazole 500 mg in 100 mls @ 100 mls/hr 01/13/24 16:05 01/13/24 17:19 Flagyl IV 01/13/24 17:04 100 mls/hr ONCE ONE Administration Levofloxacin 500 mg in 100 mls @ 100 mls/hr 01/13/24 16:05 01/13/24 17:19 Levaquin IV 01/13/24 17:04 100 mls/hr ONCE ONE Administration Iohexol 100 ml 01/13/24 16:40 01/13/24 16:41 Iohexol 350 Mg/Ml 100 Ml Infus..Btl IV 01/13/24 16:41 85 ml ONCE ONE Administration Ondansetron HCl 4 mg 01/13/24 14:08 01/13/24 16:07 Ondansetron Hcl 4 Mg/2 Ml Vial IVPUSH 01/13/24 14:09 Not Given ONCE ONE Ondansetron HCl 4 mg 01/13/24 14:08 01/13/24 14:11 Ondansetron Odt 4 Mg Tab.Mariaa RICK 01/13/24 14:09 4 mg ONCE ONE Administration Medical Decision Making Medical Decision Making [facility] Narrative: 1615 53 yo m presents w/ nausea, vomiting, fevers, chills, fatigue, malaise, myalgias X 4 days PE benign Hx and pe concerning for viral ilness vs gastritis vs gasterenteritis. Less likley acute abdomen, obstruction, pancreatitis, diverticulitis, cholecystitis, appendicitis. Will rule out metabolic derangments Plan- labs, blood cultures, lactic, imaging. Differential Diagnosis Differential Diagnoses: The differential diagnosis associated with the presentation includes Hx and pe concerning for viral ilness vs gastritis vs gasterenteritis. Less likley acute abdomen, obstruction, pancreatitis, diverticulitis, cholecystitis, appendicitis. Will rule out metabolic derangments Admission/Observation Consideration of admission/observation: Escalation of care including admission/observation considered Possible Lab Data [facility] Lab Attestation statement: I reviewed the patient's lab results. 01/13/24 14:25 01/13/24 14:25 Labs: Lab Results 01/13/24 01/13/24 01/13/24 Range/Units 14:25 16:51 16:55 WBC 7.4 (4.8-10.8) X10*3/uL RBC 5.70 (4.60-5.80) X10*6/uL Hgb 16.1 (14.0-18.0) g/dl Hct 46.3 (42.0-52.0) % MCV 81.2 (80.0-98.0) fL MCH 28.2 (27.0-33.0) pg MCHC 34.8 (31.0-36.0) g/dl RDW 13.2 (11.0-16.0) % Plt Count 258 (160-400) X10*3/uL MPV 9.1 L (9.4-12.4) fL Immature Gran % (Auto) 0.3 (0.0-0.4) % Neut % (Auto) 70.5 (45-73) % Lymph % (Auto) 14.2 L (20-40) % [place] % (Auto) 14.2 H (2-11) % Eos % (Auto) 0.5 (0-4) % Baso % (Auto) 0.3 (0-2) % Lymph # (Auto) 1.1 L (1.2-4.9) X10*3/uL [place] # (Auto) 1.1 (0.1-1.2) X10*3/uL Eos # (Auto) 0.0 (0.0-0.4) X10*3/uL Baso # (Auto) 0.0 (0.0-0.2) X10*3/uL Abs Immat Gran (auto) 0.02 (0.00-0.03) X10*3/uL Absolute Neuts (auto) 5.2 (2.0-8.3) x10*3/uL Absolute Nucleated RBC 0.000 (0.0-0.012) X10*3/uL Nucleated RBC % (auto) 0.0 (0.0-0.2) /100WBC Sodium 135 (135-145) mmol/L Potassium 4.2 (3.3-5.1) mmol/L Chloride 97 (96-108) mmol/L Carbon Dioxide 25 (22-29) mmol/L Anion Gap 17 (12-20) BUN 11 (9-16) mg/dL Creatinine 1.25 (0.5-1.4) mg/dL Estim Creat Clear Calc 68.9 Estimated GFR 60 Random Glucose 101 (60-115) mg/dL Lactic Acid 1.0 0.9 (0.5-2.0) mmol/L Calcium 9.8 (8.4-10.2) mg/dL Magnesium 2.2 (1.6-2.6) mg/dL Total Bilirubin 0.5 (0.0-1.0) mg/dL Direct Bilirubin 0.2 (0.0-0.5) mg/dL AST 29 (5-37) U/L ALT 26 (0-40) U/L Alkaline Phosphatase 83 (39-117) U/L Total Protein 8.3 H (6.5-8.0) g/dL Albumin 4.3 (3.5-5.0) g/dL Lipase 20 (8-78) U/L Urine Color Yellow Urine Appearance Clear Urine pH 6.0 (5.0-9.0) Ur Specific [place] >= 1.030 H (1.005-1.025) Urine Protein 30 (1+) H (Neg-Trace) mg/dL Urine Glucose (UA) Negative (Negative) mg/dL Urine Ketones Trace (Negative) mg/dL Urine Blood Negative (Negative) Urine Nitrite Negative (Negative) Ur Leukocyte Esterase Negative (Negative) Urine RBC 0-2 (0-2) /HPF Urine WBC 0-5 (0-5) /HPF Ur Squamous Epith Cells 0-2 (0-2) /HPF Urine Bacteria None Seen (None Seen) Hyaline Casts 0-2 (0-2) /LPF Urine Opiates Screen Not Detected (Not Detect) Ur Buprenorphine Scrn Not Detected (Not Detect) ng/mL Ur Oxycodone Screen Not Detected (Not Detect) ng/mL Urine Methadone Screen Not Detected (Not Detect) ng/mL Urine Fentanyl Screen Not Detected (Not Detect) Ur Barbiturates Screen Not Detected (Not Detect) Ur Phencyclidine Scrn Not Detected (Not Detect) Ur Amphetamines Screen Not Detected (Not Detect) U Benzodiazepines Scrn Not Detected (Not Detect) Urine Cocaine Screen Not Detected (Not Detect) U Marijuana (THC) Screen Not Detected (Not Detect) COVID-19 (THA) Negative (Negative) COVID-19 Clin Com See Note Influenza Type A (SILVANO) Negative (Negative) Influenza Type B (SILVANO) Negative (Negative) Influenza A & B Note See Note Independent Interpretation I performed an independent interpretation of an: CT Scan Radiology Impression Discussion of test interpretation with radiology: I have reviewed the radiologist's reading. Independent Historian Clinical information obtained from an independent historian. History obtained from or confirmed by: Friend External Record Review External record reviewed: Inpatient record, Office record, Outpatient record, Prior outpatient labs, Prior outpatient radiology, Primary care record and Outside ED record Chronic Conditions Patient?s care impacted by: Other (inguinodynia ) Critical Care Time Critical Care Time Critical Care Time: Yes Total Critical Care Time: 35 Attestation: I attest to this time spent taking care of the patient, obtaining history, physical, reviewing labs, imaging, speaking to my attending, specialist or hospitalist. Discharge Plan Discharge Clinical Impression: Nausea & vomiting, Pneumonia Patient Disposition: Home, Self-Care Instructions: Acute Nausea and Vomiting (ED), Pneumonia (ED) Additional Instructions: Take your medications as prescribed. If you were prescribed antibiotics today, it is important that you take your medication to their entirety, do not skip any doses, do not finish them early. Follow-up with your primary care provider this week. Return to the emergency department with new or worsening symptoms. Such as fevers, chills, chest pain, shortness of breath, nausea, vomiting, dizziness, headache, vision changes, lethargy In case of emergency call 911 Prescriptions: New azithromycin 250 mg tablet See Rx Instructions .ROUTE .COMPLEX Qty: 6 0RF Rx Instructions: For 250 mg dose pack: take 500 mg today (day 1), then 250 mg for 4 days (days 2-5) doxycycline hyclate 100 mg capsule 100 mg PO BID 10 Days Qty: 20 0RF albuterol sulfate 90 mcg/actuation aerosol powdr breath activated 2 inh inhalation Q4-6H PRN (Reason: shortness of breath or wheezing) Qty: 1 0RF prednisone 20 mg tablet 40 mg PO DAILY 5 Days Qty: 10 0RF ondansetron 4 mg tablet,disintegrating 4 mg PO Q6H PRN (Reason: nausea and vomiting) Qty: 14 0RF No Action acetaminophen [Tylenol Extra Strength] 500 mg tablet 500 mg PO Q6H PRN Referrals: Nilesh Rivera MD [Primary Care Provider] - 2 days Stand Alone Forms: Work/School Release Print Language: Congolese
[2024-01-13] MEDS: Ondansetron ODT 4 MG TAB.RAPDIS TRANSLINGU (14:11)
[2024-01-13] MEDS: Acetaminophen 325 MG TABLET 975 MG PO (14:12)
[2024-01-13 14:33] LABS: MANUAL DIFF FLAG NO
[2024-01-13 14:35] LABS: Basophils Percent Auto 0.3 % (0-2); Eosinophils Percent Auto 0.5 % (0-4); Hematocrit 46.3 % (42.0-52.0); Hemoglobin 16.1 g/dl (14.0-18.0); Imm Gran Abs Auto 0.02 X10*3/uL (0.00-0.03); Imm Gran Pct Auto 0.3 % (0.0-0.4); Lymphocytes Absolute Auto 1.1 X10*3/uL (1.2-4.9); Lymphocytes Percent Auto 14.2 % (20-40); Mean Corpuscular HGB Conc 34.8 g/dl (31.0-36.0); Mean Corpuscular Hemoglobin 28.2 pg (27.0-33.0); Mean Corpuscular Volume 81.2 fL (80.0-98.0); Mean Platelet Volume 9.1 fL (9.4-12.4); Monocytes Absolute Auto 1.1 X10*3/uL (0.1-1.2); Monocytes Percent Auto 14.2 % (2-11); Neutrophils Absolute Auto 5.2 x10*3/uL (2.0-8.3); Neutrophils Percent Auto 70.5 % (45-73); Platelet Count 258 X10*3/uL (160-400); Red Cell Distribution Width 13.2 % (11.0-16.0); White Blood Count 7.4 X10*3/uL (4.8-10.8)
[2024-01-13 14:47] LABS: COVID-19 Test Negative (Negative); IDNOW Serial# 58CA691E
[2024-01-13 14:50] LABS: Alanine Aminotransferase 26 U/L (0-40); Albumin Level 4.3 g/dL (3.5-5.0); Alkaline Phosphatase 83 U/L (39-117); Anion Gap 17 (12-20); Aspartate Amino Transferase 29 U/L (5-37); Bilirubin Direct 0.2 mg/dL (0.0-0.5); Bilirubin Total 0.5 mg/dL (0.0-1.0); Blood Urea Nitrogen 11 mg/dL (9-16); Calcium 9.8 mg/dL (8.4-10.2); Carbon Dioxide 25 mmol/L (22-29); Chloride 97 mmol/L (96-108); Creatinine Clr Calc Pharmacy 68.9; Estimated Glomerular Filt Rate 60; Glucose Random 101 mg/dL (60-115); Lipase 20 U/L (8-78); Magnesium 2.2 mg/dL (1.6-2.6); Potassium 4.2 mmol/L (3.3-5.1); Sodium 135 mmol/L (135-145); Total Protein 8.3 g/dL (6.5-8.0)
[2024-01-13 16:00] VITALS: BP 128/89; PULSE 85; RESP 18; TEMP 37; O2SAT 98
[2024-01-13] MEDS: Lactated Ringers 1,000 ML 999 ML IV (16:02)
[2024-01-13] MEDS: iohexoL 350 MG/ML 100 ML INFUS..BTL IV (16:41)
[2024-01-13 17:06] LABS: Lactic Acid 0.9 mmol/L (0.5-2.0)
[2024-01-13 17:13] LABS: Appearance Urine Clear; Color Urine Yellow; Glucose Urine UA Negative (Negative); Leukocyte Esterase Urine Negative (Negative); Nitrite Urine Negative (Negative); Specific Gravity - Urine >= 1.030 (1.005-1.025); UMIC TRIGGER UACC YES; Urine Blood Negative (Negative); Urine Ketones Trace mg/dL (Negative); Urine Protein 30 (1+) mg/dL (Neg-Trace)
[2024-01-13 17:18] LABS: Bacteria Urine None Seen (None Seen); Hyaline Casts Urine 0-2 /LPF (0-2); RBC Urine 0-2 /HPF (0-2); Squamous Epithelial Cell Urine 0-2 /HPF (0-2); WBC Urine 0-5 /HPF (0-5)
[2024-01-13] MEDS: levoFLOXacin/D5W 500 MG/100 ML PIGGYBACK 100 MG IV (17:19)
[2024-01-13] MEDS: metroNIDAZOLE/NS 500 MG/100 ML PIGGYBACK 100 MG IV (17:19)
[2024-01-13 17:20] LABS: IDNOW Serial# 152EDE1D; Influenza A Negative (Negative); Influenza B2 Negative (Negative)
[2024-01-13 17:22] LABS: Amphetamine Screen Urine Not Detected (Not Detect); Barbiturates, Urine Not Detected (Not Detect); Benzodiazepines Screen Urine Not Detected (Not Detect); Buprenorphine Scr Not Detected (Not Detect); Cannabinoid Screen Urine Not Detected (Not Detect); Cocaine Screen Urine Not Detected (Not Detect); Fentanyl, urine Not Detected (Not Detect); Methadone Screen, Urine Not Detected (Not Detect); Opiate Screen Urine Not Detected (Not Detect); Oxycodone Screen Urine Not Detected (Not Detect); Phencyclidine Screen Urine Not Detected (Not Detect)
[2024-01-13 18:00] VITALS: BP 127/89; PULSE 90; RESP 20; TEMP 37.2; O2SAT 97
[2024-01-13] MEDS: 0.9 % Sodium Chloride 1,000 ML 999 ML IV (18:00)
[2024-01-13 18:31] VITALS: BP 127/89; PULSE 90; RESP 20; TEMP 37.2; O2SAT 97
--- OUTSIDE RECORDS SUMMARY | 2024-01-19 06:19 | XMS_ITS | Patient Health Record ---
Author Organization [facility] Address [address] [place] [address] Care Team Providers Care [employer] Name Role Phone Nilesh Rivera MD Primary Care Provider Ender Becerra Unavailable [phone] ALLERGIES Allergen (clinical drug ingredient) Drug/Non Drug Allergy documented on EMR Reaction Allergy Type Onset Date Status amoxicillin Amoxicillin Unknown Drug Allergy Act florecita hay fever (uncoded) Unknown Allergy Active REASON FOR REFERRAL No Information MEDICATIONS Medication [...] Problem Colon cancer screening (Z12.11) Active confirmed 016496185 Problem Preprocedural examination (Z01.818) Active confirmed 480172579508464 Problem Diverticulosis of large intestine without perforation or abscess without bleeding (K57.30) Active confirmed Diverticul ar disease of colon (442816756) PLAN OF TREATMENT Future Test Test Name Order Date COLONOSCOPY 07/01/2022 Insurance Providers Payer Name Payer Address Payer Phone Subscriber Number Group Number Insured Name Patient Relationship to Insured Coverage Start Date Coverage End Date [facility] [address] [place] [address] [id number] LOU Self - patient is the insured MEDICAL (GENERAL) HISTORY Medical History History ICD Code Denies [place],DM,CVA,Lung disease,renal dise ase Surgical History Surgery Date(Month/Year) Right inguinal hernia Dr. Robi Ryan
--- OUTSIDE RECORDS SUMMARY | 2024-01-19 06:19 | XMS_ITS ---
Author Organization [facility] Address [address] [place] [address] Care Team Providers Care Job Honer Name Role Phone Nilesh Rivera MD Primary Care Provider Candya Ender North Unavailable [phone] REASON FOR VISIT screening PROBLEMS Problem Type ICD Code Onset Dates Problem Status W/U Status Risk SNOMED Code Notes Problem Diverticulosis of large intestine without perforation or abscess without bleeding (K57.30) Active confirmed Diverticul ar disease of colon (219340311) Encounters Encounter Location Date Provider Diagnosis [facility] Outpatient [address] [place], [place] [id number] 08/28/2022 Ender Zee Encounter for scre ening colonoscopy Z12.11 ; Colon polyp K63.5 ; Other hemorrhoids K64.8 and Diverticulosis of large intestine without perforation or abscess without bleeding K57.30 ASSESSMENTS Encounter Date Diagnosis Assessment Notes Treatment Notes Treatment Clinical Notes 08/28/2022 Encounter for screening colonoscopy (ICD-10 - Z12.11) 08/28/2022 Colon polyp (ICD-10 - K63.5) 08/28/2022 Other hemorrhoids (ICD-10 - K64.8) 08/28/2022 Diverticulosis of large intestine without perforation or abscess without bleeding (ICD-10 - K57.30) PLAN OF TREATMENT Next Appt Details Follow Up: prn, Reason:
== END 2024-01-13 18:31 | disposition home or self-care (01) ==
PROVIDERS: Physician Assistant; Emergency Provider Internal Medicine; PCP Internal Medicine
DX: J18.9 Pneumonia, unspecified organism (principal); R11.2 Nausea with vomiting, unspecified; R05.9 Cough, unspecified; M79.10 Myalgia, unspecified site; R50.9 Fever, unspecified; R53.81 Other malaise; Z11.52 Encounter for screening for COVID-19; Z79.899 Other long term (current) drug therapy; Z51.81 Encounter for therapeutic drug level monitoring
CPT/HCPCS: 36415; 71046; 71250; 74177; 80048; 80076; 80307; 81001; 83605; 83690; 83735; 85025; 87040; 87502; 87635; 96361; 96374; 96375; 99284; J1836; J1956; J7120; Q9967

== ENCOUNTER 2024-02-02 15:40 | Outpatient (REF) | payer BC, SELFPAY ==
--- NOTE | ~2024-02-02 | XR_ITS ---
EXAMINATION: XR CHEST CLINICAL INFORMATION: Pneumonia. COMPARISON: January 13, 2024 TECHNIQUE: 2 views of the chest were obtained. FINDINGS: The lungs are well expanded. No focal consolidation. There has been interval resolution of previously demonstrated airspace disease. No pleural effusion. Cardiac silhouette is unchanged. XR/XR chest 2V IMPRESSION: Interval resolution of airspace disease. No acute abnormality. Electronically signed by: Nam Nunes MD 02/03/2024 08:13 AM EDT
[2024-02-02 16:03] LABS: MANUAL DIFF FLAG NO
[2024-02-02 16:13] LABS: Basophils Absolute Auto 0.1 X10*3/uL (0.0-0.2); Basophils Percent Auto 0.8 % (0-2); Eosinophils Absolute Auto 0.4 X10*3/uL (0.0-0.4); Eosinophils Percent Auto 5.8 % (0-4); Hematocrit 42.6 % (42.0-52.0); Hemoglobin 14.3 g/dl (14.0-18.0); Imm Gran Abs Auto 0.02 X10*3/uL (0.00-0.03); Imm Gran Pct Auto 0.3 % (0.0-0.4); Lymphocytes Percent Auto 31.8 % (20-40); Mean Corpuscular HGB Conc 33.6 g/dl (31.0-36.0); Mean Corpuscular Volume 83.5 fL (80.0-98.0); Mean Platelet Volume 8.6 fL (9.4-12.4); Monocytes Absolute Auto 0.5 X10*3/uL (0.1-1.2); Monocytes Percent Auto 8.2 % (2-11); Neutrophils Absolute Auto 3.3 x10*3/uL (2.0-8.3); Neutrophils Percent Auto 53.1 % (45-73); Platelet Count 284 X10*3/uL (160-400); Red Cell Distribution Width 13.6 % (11.0-16.0); White Blood Count 6.2 X10*3/uL (4.8-10.8)
[2024-02-02 16:38] LABS: Alanine Aminotransferase 31 U/L (0-40); Albumin Level 4.1 g/dL (3.5-5.0); Alkaline Phosphatase 82 U/L (39-117); Anion Gap 11 (12-20); Aspartate Amino Transferase 17 U/L (5-37); Bilirubin Total 0.4 mg/dL (0.0-1.0); Blood Urea Nitrogen 8 mg/dL (9-16); Calcium 9.6 mg/dL (8.4-10.2); Carbon Dioxide 28 mmol/L (22-29); Chloride 104 mmol/L (96-108); Estimated Glomerular Filt Rate > 60; Glucose Random 88 mg/dL (60-115); Potassium 4.3 mmol/L (3.3-5.1); Sodium 139 mmol/L (135-145)
== END 2024-02-02 15:41 | disposition home or self-care (01) ==
LOC: HO.LAB 15:40
PROVIDERS: PCP Internal Medicine; Visit Provider Internal Medicine
DX: J18.9 Pneumonia, unspecified organism (principal)
CPT/HCPCS: 36415; 71046; 80053; 85025

== ENCOUNTER 2024-10-02 15:05 | Outpatient (AMB) | payer BC, SELFPAY ==
--- NOTE | 2024-10-02 15:09 | MHC.PC.OV ---
Vital Signs 10/02/24 15:10 Height 5 ft 10 in Weight 174 lb BMI 25.0 BP 128/92 H Respiration 18 Pulse 78 Pulse Source Pulse Oximeter Temp 98.7 F Temp Source Oral Pulse Oximetry (%) 97 Oxygen Delivery Method Room Air Intake Visit Reasons: Routine Rn Diabetes Required: No Accompanied by: Self / Same As Patient Allergies amoxicillin [AMOXICILLIN] Allergy (Unknown, Verified 10/02/24 15:10) HIVES AND THROAT CLOSES Tobacco use date assessed: 10/02/24 Dental Screening Dental Screen Date: 10/02/24 Did you have a dental visit in the last 12 months?: Yes Did you have a dental problem in the last 6 months where you did not have access to dental care?: No Was dental information given to patient?: Patient has dentist [facility] Surgical History History of colonoscopy (~08/28/22) Appendicitis H/O hernia repair Family History (Updated 10/02/24 @ 15:22 by MARISELA Huerta) Father Lung cancer Mother No problems noted. 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 Cognitive needs: No Hearing needs: No Vision needs: Yes (Rx glasses) Questionnaire PHQ-9 Over the last 2 weeks, how often have you been bothered by any of the following problems? 1. Little interest or pleasure in doing things: not at all 2. Feeling down, depressed, or hopeless: not at all 3. Trouble falling or staying asleep, or sleeping too much: not at all 4. Feeling tired or having little energy: not at all 5. Poor appetite or overeating: not at all 6. Feeling bad about yourself - or that you are a failure or have let yourself or your family down: not at all 7. Trouble concentrating on things, such as reading the newspaper or watching television: not at all 8. Moving or speaking so slowly that other people could have noticed. Or the opposite - being so fidgety or restless that you have been moving around a lot more than usual: not at all 9. Thoughts that you would be better off or of hurting yourself in some way: not at all Total score: 0 Source: Developed by Drs. Ender Sheth, Mulugeta Schneider and colleagues, with an educational darlin from [employer]. Thrive Questionnaire Date Thrive assessed: 10/02/24 I am a: Patient Within the past 12 months, did the food you bought not last and you didn't have the money to get more?: Never true Within the past 12 months, did you worry whether your food would run out before you got money to buy more?: Never true Do you have trouble paying for medicines?: No Do you have trouble getting transportation to medical appointments?: No Do you have trouble paying your heating and electricity bill?: No Do you have trouble taking care of your child, family member or friend?: No Do you have trouble with day-to-day activities such as bathing, preparing meals, shopping, managing finances, etc.?: No Are you currently unemployed and looking for a job?: No Are you interested in more education?: No THRIVE Score: 0 AUDIT C Alcohol Use Questionnaire (AUDIT-C) 1. How often do you have a drink containing alcohol?: Never 3. How often do you have six or more drinks on one occasion?: Never Total Score: 0 DIONNA-7 AMB Questionnaire DIONNA-7 Date DIONNA - 7 assessed: 10/02/24 Feeling nervous, anxious, or on edge: 0 = Not at all Not being able to stop or control worryin = Not at all Worrying too much about different things: 0 = Not at all Trouble relaxin = Not at all Being so restless that it is hard to sit still: 0 = Not at all Becoming easily annoyed or irritable: 0 = Not at all Feeling afraid as if something awful might happen: 0 = Not at all Total DIONNA-7 score (0-4 normal; 5-9 mild; 10-14 moderate; 15-21 severe): 0 Source: Developed by Drs. Ender Sheth, Mulugeta Schneider and colleagues, with an educational darlin from [employer]. Physical exam (Primary Care) Vital Signs: Last Vital Signs Temp 98.7 F 10/02/24 15:10 Pulse 78 10/02/24 15:10 Resp 18 10/02/24 15:10 BP 128/92 H 10/02/24 15:10 Pulse Ox 97 10/02/24 15:10 Oxygen Delivery Method Room Air 10/02/24 15:10 BMI result Body Mass Index 25.0 Tobacco/Smoking Status: Tobacco use Status Tobacco use date assessed 10/02/24 10/02/24 15:12 Patient Tobacco Use Status Never used Tobacco 10/02/24 15:26 e-Cigarette/Vaping Use Never Used 10/02/24 15:22 PHQ-9: PHQ-9 Score PHQ-9: Total score 0 10/02/24 15:26 Thrive Assessment: Date of Thrive Assessment Date Thrive assessed 10/02/24 10/02/24 15:12 Coding Level of Care Code New Pt Level 4 (86953) Complex EM visit Add On G2211 Diagnoses SOB (shortness of breath) R06.02 Rash R21 Assessment & Plan Assessment & Plan (1) SOB (shortness of breath): Code(s): R06.02 - Shortness of breath Category: Medical Plan: Xr has been ordered. Symbicort prescription has been sent (2) Rash: Code(s): R21 - Rash and other nonspecific skin eruption Plan: Ketoconazole cream ordered. . Keep the area dry. Plan History of Present Illness The patient is a 54-year-old male presenting with chronic cough and persistent groin pain. The cough has been noted for over a year, with fits that are sometimes productive. Physical exertion exacerbates the cough, which aligns with a history of prior pneumonia and COVID-19. He reports no fevers or chills, and wheezing was only noted following prior pulmonary illness. Regarding groin pain, the patient reports this began or worsened following hernia mesh placement, with subsequent gait issues tied to an old work injury. Physical therapy was commenced but later stopped. A related persistent pruritic rash has spread from the back to the groin, not fully alleviated by current treatments. 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 - Engages in some level of physical activity, e.g., stair climbing, but affected by current health issues. Review of Systems - Respiratory: Reports chronic cough, occasional productive. - Musculoskeletal: Reports persistent groin pain. - Dermatological: Reports rash and pruritus, particularly in the groin. Physical Exam General: Cooperative and healthy appearing Nutritional Appearance: Well nourished Orientation/consciousness: Patient oriented x3 Limitations: No limitations Head: Normal to inspection General: Appearance normal, both eyes and all related structures Neck: Normal visual inspection Chest: Normal palpation of entire chest wall Respiratory: Breathing heavy, cough comes and goes, sometimes productive, sometimes dry. ormal respiratory effort Neurology: Patient oriented x3 Results Plan 1. Chronic Cough - Initiate daily use of an inhaler and perform blood tests for allergy screening. 2. Persistent Groin Pain Post Hernia Repair - Restart physical therapy focusing on gait correction. 3. Rash With Pruritus - Explore alternative topical treatments as desitin is not effective. 4. Hyperlipidemia - Conduct blood tests for cholesterol, resume dietary interventions. Discussion Notes I discussed the chronic cough with the patient and its episodic nature, advising the trial of an inhaler to manage this symptom systematically for three months. Blood work is planned to explore possible allergenic causes. Attention to his groin pain, potentially exacerbated by past hernia repair, requires rehabilitation through continued physical therapy. For the pruritic rash, a need for alternative topical solutions was noted, as current management with desitin is ineffective. Lastly, the need to reassess hyperlipidemia due to a lapse in dietary changes was highlighted, aiming to return to previous satisfactory cholesterol levels. Patient Instructions - Use the prescribed inhaler once daily for the next three months. - Follow up with recommended blood tests for cough and cholesterol. - Resume and continue physical therapy when possible. - Seek alternative treatments for the rash with your follow-up. - Maintain dietary measures to control cholesterol. - Contact if symptoms worsen or new issues arise. Orders: Orders Complete Blood Count no Diff Today R06.02 - Shortness of breath, R21 - Rash and other nonspecific skin eruption Basic Metabolic Panel Today R06.02 - Shortness of breath, R21 - Rash and other nonspecific skin eruption Lipid Panel Today R06.02 - Shortness of breath, R21 - Rash and other nonspecific skin eruption Liver Panel Today R06.02 - Shortness of breath, R21 - Rash and other nonspecific skin eruption UA and rflx microscopic Today R06.02 - Shortness of breath, R21 - Rash and other nonspecific skin eruption XR chest 2V Today R05.9 - Cough, unspecified Thyroid Stimulating Hormone Today R06.02 - Shortness of breath, R21 - Rash and other nonspecific skin eruption Medications: New budesonide-formoterol 80-4.5 mcg/actuation (Symbicort) 1 inh inhalation BID 10.2 grams 1RF ketoconazole 2% 1 appl topical DAILY 30 grams 1RF hydroxyzine HCl 10 mg PO BEDTIME 10 tabs 0RF
[2024-10-02 15:10] VITALS: BP 128/92; PULSE 78; RESP 18; TEMP 37.1; O2SAT 97; BMI 25.0
--- OUTSIDE RECORDS SUMMARY | 2024-10-02 16:41 | XMS_ITS | Clinical Summary ---
Author Organization [facility] Address [address] [place] [address] Care Team Providers Care Ski Maker Name Role Phone Unavailable Primary Care Provider Unavailabl e Social History Tobacco Use Types Packs/Day Years Used Date Smoking Tobacco: Never Assessed Sex and Gender Information Value Date Recorded Sex Assigned at Not on file Legal Sex Male 5:25 PM EDT Gender Identity Not on file Sexual Orientation Not on file Plan of Treatment Health Maintenance Due Date Last Done Comments Hepatitis C Virus Screening 1970 HIV Screening 02/03/1981 DTaP/Tdap/Td Vaccines (1 - Tdap) 02/03/1987 Hepatitis B Vaccines (1 of 3 - 19+ 3-dose series) 10/1986 Pneumococcal Vaccines 50+ (1 of 1 - PCV) 02/03/2018 Zoster (Shingles) Vaccine (1 of 2) 02/03/2018 COVID-19 Vaccine ( - 2023- season) 2024
--- OUTSIDE RECORDS SUMMARY | 2024-10-02 16:41 | XMS_ITS | Patient Health Record ---
Author Organization [facility] Address [address] [place] [address] Care Team Providers Care Crumb Packer Name Role Phone Nilesh Rivera MD Primary Care Provider Ender Becerra Unavailable [phone] Allergies Allergen (clinical drug ingredient) Drug/Non Drug Allergy documented on EMR Reaction Allergy Type Onset Date Status amoxicillin Amoxicillin Unknown Drug Allergy Act florecita hay fever (uncoded) Unknown Allergy Active Reason For Referral No Information Medications Medication SIG (Take, Route, Fr equency, Duration) Notes Start Date End Date Status Tamsulosin HCl 0.4 MG Oral for 30 Active Immunizations Vaccine Route Administration Date Status Comme nts Influenza Unknown 07/01/2022 Refused Social History Tobacco Use: Social History Observation Description Date Details (start date - stop date) Never Smoker NA - NA Tobacco Use/Smoking Question Answer Notes Patient is a nonsmoker Alcohol Screen Question Answer Notes Did you have a drink containing alcohol in the p ast year? No Points 0 Interpretation Negative Problems Problem Type SNOMED Code ICD Code Onset Dates Problem Status W/U Status Risk Notes Problem [id number] Colon cancer screening (Z12.11) Active confirmed Problem Diverticular disease of colon (196510692) Diverticulosis of large intestine without perforation or abscess without bleeding (K57.30) Active confirmed Problem [id number] Preprocedural examination (Z01.818) Active confirmed Plan Of Treatment Future Test Test Name Order Date COLONOSCOPY 07/01/2022 Insurance Providers Payer Name Payer Address Payer Phone Subscriber Number Group Number Insured Name Patient Relationship to Insured Coverage Start Date Coverage End Date [facility] [address] [place] [address] [id number] MARIJA OSPINA Self - patient is the insured Medical (General) History Medical History History ICD Code Denies [place],DM,CVA,Lung disease,renal dise ase Surgical History Surgery Date(Month/Year) Right inguinal hernia Dr. Robi Ryan
== END 2024-10-02 15:56 | disposition home or self-care (01) ==
LOC: HO.HMCHD 15:05
PROVIDERS: PCP Internal Medicine; Visit Provider Internal Medicine
DX: R06.02 Shortness of breath (principal); R21 Rash and other nonspecific skin eruption

== ENCOUNTER → 2024-10-02 15:05 | Outpatient (BNVA) | payer BC, SELFPAY | PROVIDERS: PCP Internal Medicine; Visit Provider Internal Medicine ==

== ENCOUNTER 2024-10-16 10:04 | Outpatient (REF) | payer BC, SELFPAY ==
--- NOTE | ~2024-10-16 | XR_ITS ---
EXAMINATION: XR CHEST CLINICAL INFORMATION: R05.9 - Cough, unspecified COMPARISON: 02/02/2024, 01/13/2024. TECHNIQUE: 2 views of the chest were obtained. FINDINGS: The cardiac, hilar, and mediastinal contours are normal. The lungs are clear bilaterally. There is no pneumothorax or pleural effusion. There is no focal osseous or soft tissue abnormality. XR/XR chest 2V IMPRESSION: Normal chest. Electronically signed by: Cali Greer MD 10/16/2024 10:25 AM EDT
--- OUTSIDE RECORDS SUMMARY | 2024-10-16 10:32 | XMS_ITS | Patient Health Record ---
Author Organization [facility] Address [address] [place] [address] Care Team Providers Care Progressive Care Nurse Name Role Phone Nilesh Rivera MD Primary Care Provider Ender Becerra Unavailable [phone] Allergies Allergen (clinical drug ingredient) Drug/Non Drug [...] Problem Status W/U Status Risk Notes Problem [id number] Colon cancer screening (Z12.11) Active confirmed Problem Diverticulosis o f large intestine without perforation or abscess without bleeding (K57.30) Active confirmed Problem [id number] Preprocedural examination (Z01.818) Active confirmed Plan Of Treatment Future Test Test Name Order Date COLONOSCOPY 07/01/2022 Insurance Providers Payer Name Payer Address Payer Phone Subscriber Number Group Number Insured Name Patient Relationship to Insured Coverage Start Date Coverage End Date [facility] [address] [place] [address] [id number] MARIJA OSPINA Self - patient is the insured Medical (General) History Medical History History ICD Code Denies [place],DM,CVA,Lung disease,renal dise ase Surgical History Surgery Date(Month/Year) Right inguinal hernia Dr. Robi Ryan
--- OUTSIDE RECORDS SUMMARY | 2024-10-16 10:32 | XMS_ITS | Clinical Summary ---
Author Organization [facility] Address [address] [place] [address] Care Team Providers Care Windows Software Engineer Name Role Phone Unavailable Primary Care Provider [...]
[2024-10-16 10:52] LABS: Hematocrit 43.9 % (42.0-52.0); Hemoglobin 14.8 g/dl (14.0-18.0); Mean Corpuscular HGB Conc 33.7 g/dl (31.0-36.0); Mean Corpuscular Hemoglobin 28.4 pg (27.0-33.0); Mean Corpuscular Volume 84.1 fL (80.0-98.0); Mean Platelet Volume 9.1 fL (9.4-12.4); Platelet Count 301 X10*3/uL (160-400); Red Blood Count 5.22 X10*6/uL (4.60-5.80); Red Cell Distribution Width 13.2 % (11.0-16.0); White Blood Count 4.9 X10*3/uL (4.8-10.8)
[2024-10-16 11:15] LABS: Appearance Urine Clear; Color Urine Yellow; Glucose Urine UA Negative (Negative); Leukocyte Esterase Urine Negative (Negative); Nitrite Urine Negative (Negative); PH >= 9.0 (5.0-9.0); Urine Blood Negative (Negative); Urine Ketones Negative (Negative); Urine Protein Trace mg/dL (Neg-Trace)
[2024-10-16 11:52] LABS: Alanine Aminotransferase 19 U/L (0-40); Albumin Level 4.2 g/dL (3.5-5.0); Alkaline Phosphatase 97 U/L (39-117); Anion Gap 9 (12-20); Aspartate Amino Transferase 20 U/L (5-37); Bilirubin Direct 0.1 mg/dL (0.0-0.5); Bilirubin Total 0.5 mg/dL (0.0-1.0); Blood Urea Nitrogen 10 mg/dL (9-16); Calcium 9.2 mg/dL (8.4-10.2); Carbon Dioxide 27 mmol/L (22-29); Chloride 108 mmol/L (96-108); Cholesterol 211 mg/dL (<200); Estimated Glomerular Filt Rate > 60; Glucose Random 96 mg/dL (60-115); HDL Cholesterol 35 mg/dL (>40); LDL Cholesterol Calculated 155 mg/dL (<100); Potassium 4.2 mmol/L (3.3-5.1); Sodium 140 mmol/L (135-145); Total Protein 7.1 g/dL (6.5-8.0); Triglycerides 109 mg/dL (<150)
[2024-10-16 12:12] LABS: Thyroid Stimulating Hormone 5.02 uIU/mL (0.32-4.0)
== END 2024-10-16 10:05 | disposition home or self-care (01) ==
LOC: HO.LAB 10:04
PROVIDERS: PCP Internal Medicine; Visit Provider Internal Medicine
DX: R05.9 Cough, unspecified (principal); R21 Rash and other nonspecific skin eruption; R06.02 Shortness of breath
CPT/HCPCS: 36415; 71046; 80048; 80061; 80076; 81003; 84443; 85027

== ENCOUNTER → 2024-10-16 10:08 | Outpatient (BNV) | payer BC, SELFPAY | PROVIDERS: PCP Internal Medicine; Visit Provider Radiology Diagnostic Radiology | DX: R05.9 Cough, unspecified (principal) | CPT/HCPCS: 71046 ==

== ENCOUNTER 2025-04-02 14:15 | Outpatient (AMB) | payer BC, SELFPAY ==
[2025-04-02 08:04] VITALS: BP 130/80; PULSE 91; TEMP 36.3; O2SAT 96; BMI 25.0
--- NOTE | 2025-04-02 08:04 | MHC.PC.OV ---
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 Accompanied by: Self / Same As Patient Allergies amoxicillin (AMOXICILLIN) Allergy (Unknown, Verified 04/02/25 08:04) HIVES AND THROAT CLOSES Medication List - Last Reconciled 04/05/25 by PRIYANK Jefferson acetaminophen (Tylenol Extra Strength) 500 mg PO Q6H PRN budesonide-formoterol 80-4.5 mcg/actuation 1 puff PO BID 90 days hydroxyzine HCl 10 mg PO BEDTIME levothyroxine (Synthroid) 25 mcg PO DAILY Tobacco use date assessed: 04/02/25 Dental Screening Dental Screen Date: 04/02/25 Did you have a dental visit in the last 12 months?: Yes Did you have a dental problem in the last 6 months where you did not have access to dental care?: No HPI HPI Comments History of Present Illness Details 55 year old male with hypothyroidism, chronic itching, chronic cough here to establish care and for right knee pain and swelling. He also needs to follow up on hypothyroidism, and management of post-pneumonia respiratory symptoms. He reports that his knee has been getting progressively sore every morning, and he recently woke up with swelling. The pain is located on the sides of the knee and on the bone, and there was no known injury. The patient has a history of COVID-19, which was followed by pneumonia. Since then, he has experienced a cough that comes and goes, dyspnea on exertion, and difficulty breathing when lying flat on his back. He was prescribed Symbicort for these symptoms which he believes helped some. He has been doing it once a day. His medical history is also significant for hypothyroidism, diagnosed by a previous provider due to a high TSH level, for which he takes medication. Previous lab work from September showed borderline high cholesterol, which the patient has previously managed with diet, successfully lowering it to 160 at one point. He is due for follow up of TSH Additionally, the patient has had skin tags he wishes to remove, has noted non-changing spots on his chest, and has experienced chronic pruritus for a couple of years, which is managed with hydroxyzine. He has a family history of diabetes affecting his mother and father and would like to be screened. His colonoscopy will be due in 08/25. Patient was informed and verbally consented to the use of an ambient scribe for clinic note documentation during this visit. . [facility] Medical History (Updated 04/05/25 @ 11:30 by PRIYANK Jefferson) Ayoub angioma Diabetes mellitus screening Hyperlipidemia Hypothyroid Right knee pain Skin tags, multiple acquired Surgical History Appendicitis H/O hernia repair History of colonoscopy (~08/28/22) Family History (Updated 04/02/25 @ 14:30 by Sherrell England MA) Father Lung cancer Mother No problems noted. 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 Cognitive needs: No Hearing needs: No Vision needs: Yes (Rx glasses) Questionnaire PHQ-9 Over the last 2 weeks, how often have you been bothered by any of the following problems? 1. Little interest or pleasure in doing things: not at all 2. Feeling down, depressed, or hopeless: not at all 3. Trouble falling or staying asleep, or sleeping too much: not at all 4. Feeling tired or having little energy: not at all 5. Poor appetite or overeating: not at all 6. Feeling bad about yourself - or that you are a failure or have let yourself or your family down: not at all 7. Trouble concentrating on things, such as reading the newspaper or watching television: not at all 8. Moving or speaking so slowly that other people could have noticed. Or the opposite - being so fidgety or restless that you have been moving around a lot more than usual: not at all 9. Thoughts that you would be better off or of hurting yourself in some way: not at all Total score: 0 Depression Screening Interpretation: Negative Depression Screening Done: Yes Source: Developed by Drs. Ender Sheth, HailyMulugeta Nguyen and colleagues, with an educational darlin from [employer]. Thrive Questionnaire Date Thrive assessed: 04/02/25 I am a: Patient Within the past 12 months, did the food you bought not last and you didn't have the money to get more?: Never true Within the past 12 months, did you worry whether your food would run out before you got money to buy more?: Never true Do you have trouble paying for medicines?: No Do you have trouble getting transportation to medical appointments?: No Do you have trouble paying your heating and electricity bill?: No Do you have trouble taking care of your child, family member or friend?: No Do you have trouble with day-to-day activities such as bathing, preparing meals, shopping, managing finances, etc.?: No Are you currently unemployed and looking for a job?: No Are you interested in more education?: No THRIVE Score: 0 AUDIT C Alcohol Use Questionnaire (AUDIT-C) 1. How often do you have a drink containing alcohol?: Never 3. How often do you have six or more drinks on one occasion?: Never Total Score: 0 DIONNA-7 AMB Questionnaire DIONNA-7 Date DIONNA - 7 assessed: 04/02/25 Feeling nervous, anxious, or on edge: 0 = Not at all Not being able to stop or control worryin = Not at all Worrying too much about different things: 0 = Not at all Trouble relaxin = Not at all Being so restless that it is hard to sit still: 0 = Not at all Becoming easily annoyed or irritable: 0 = Not at all Feeling afraid as if something awful might happen: 0 = Not at all Total DIONNA-7 score (0-4 normal; 5-9 mild; 10-14 moderate; 15-21 severe): 0 Source: Developed by Drs. Ender Sheth, Mulugeta Schneider and colleagues, with an educational darlin from [employer]. Review of Systems Narrative CONSTITUTIONAL No fever HEAD/NECK Negative EAR/NOSE/MOUTH/THROAT Negative RESPIRATORY Reports an intermittent cough, dyspnea on exertion, and difficulty breathing when lying supine, which improves with changing position. CARDIOVASCULAR Negative GASTROINTESTINAL Negative MUSCULOSKELETAL Reports acute knee pain and swelling without injury. SKIN Reports skin tags and chronic pruritus for a couple of years. NEUROLOGICAL Negative PSYCHIATRIC Negative Physical exam (Primary Care) Vital Signs: Last Vital Signs Temp 97.4 F 04/02/25 08:04 Pulse 91 04/02/25 08:04 BP 130/80 04/02/25 08:04 Pulse Ox 96 04/02/25 08:04 Oxygen Delivery Method Room Air 04/02/25 08:04 BMI result Body Mass Index 25.0 GENERAL Well developed, Well nourished, in no apparent distress HEENT Head-Normocephalic Eyes- PERRLA, EOMI, Conjuctiva clear, lids WNL Ears- Canals clear, TMs WNL Mouth/Throat-No lesions, no erythema, no exudate Neck- Supple, No lymphadenopathy, thyroid WNL RESPIRATORY Normal I:E, rhonchi, mild expiratory wheezing CARDIOVASCULAR Regular, rate and rhythm, No murmurs or rubs GASTROINTESTINAL Soft, nontender, normal bowel sounds, no masses MUSCULOSKELETAL Right knee- mild swelling, full ROM, tender at joint line, small abrasion on knee NEUROLOGICAL Gait normal PSYCHIATRIC Oriented to person, place and time Mood and affect WNL Appearance WNL Speech WNL Thought processes WNL Tobacco/Smoking Status: Tobacco use Status Tobacco use date assessed 04/02/25 04/02/25 08:05 Patient Tobacco Use Status Never used Tobacco 04/02/25 08:05 e-Cigarette/Vaping Use Never Used 04/02/25 08:05 PHQ-9: PHQ-9 Score PHQ-9: Total score 0 04/03/25 15:44 Depression Screening Interpretation: Negative Thrive Assessment: Date of Thrive Assessment Date Thrive assessed 04/02/25 04/02/25 08:05 Coding Level of Care Code Established Pt Est Pt Level 4 (77970) Established Pt Complex EM visit Add On G2211 Patient Type Established Diagnoses Right knee pain M25.561 Acquired hypothyroidism E03.9 Hypothyroidism type: acquired Pure hypercholesterolemia E78.00 Hyperlipidemia type: pure hypercholesterolemia SOB (shortness of breath) R06.02 Skin tags, multiple acquired L91.8 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 Assessment & Plan Assessment & Plan (1) Right knee pain: Code(s): M25.561 - Pain in right knee Category: Medical Plan: The patient presents with acute knee pain and swelling without a known injury. An X-ray of the knee will be ordered to assess for arthritis, tendinitis, or fluid. 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 The patient was advised to rest the knee but to continue with light movement. Patient to follow up in 6 weeks or sooner if symptoms persist or worsen. (2) Hypothyroid: Code(s): E03.9 - Hypothyroidism, unspecified Category: Medical Qualifiers: Hypothyroidism type: acquired Qualified Code(s): E03.9 - Hypothyroidism, unspecified Plan: The patient carries a diagnosis of hypothyroidism and is on replacement therapy. He was counseled on the proper administration of his medication, which should be taken first thing in the morning on an empty stomach, waiting 30 minutes before eating. Blood work will be ordered to recheck his thyroid levels to assess current treatment efficacy. Patient will continue current medications. Will monitor. Patient will follow up in 6 weeks. (3) Hyperlipidemia: Code(s): E78.5 - Hyperlipidemia, unspecified Category: Medical Qualifiers: Hyperlipidemia type: pure hypercholesterolemia Qualified Code(s): E78.00 - Pure hypercholesterolemia, unspecified Plan: The patient has borderline high cholesterol. The roles of genetics and diet in cholesterol levels were discussed. His cholesterol will be rechecked with the upcoming lab work. (4) SOB (shortness of breath): Code(s): R06.02 - Shortness of breath Category: Medical Plan: The patient has lingering respiratory symptoms, including cough and dyspnea, following a recent bout of pneumonia. Auscultation revealed wheezing and inflammation, so he will continue using his Symbicort inhaler, increasing the frequency to twice daily, with one dose at night. Proper usage of the Respiclick inhaler was reviewed, and the patient was reminded to rinse his mouth after use. Patient to follow up in 6 weeks or sooner if symptoms persist or worsen. (5) Skin tags, multiple acquired: Code(s): L91.8 - Other hypertrophic disorders of the skin Category: Medical Plan: The patient inquired about removing skin tags and was also noted to have ayoub angiomas on his chest. He was reassured that the ayoub angiomas are benign and do not require treatment. For the skin tags, a referral to dermatology was offered, though he may first try an uvuv-gdo-esydkox remedy. (6) Ayoub angioma: Code(s): D18.01 - Hemangioma of skin and subcutaneous tissue Category: Medical Plan: The patient inquired about removing skin tags and was also noted to have ayoub angiomas on his chest. He was reassured that the ayoub angiomas are benign and do not require treatment. For the skin tags, a referral to dermatology was offered, though he may first try an lnpq-vxu-afoqsnr remedy. Plan I discussed the patient's acute knee swelling and recommended an X-ray to investigate for underlying causes such as arthritis or fluid. I provided him with a work excuse for two days to allow for rest. We reviewed his diagnosis of hypothyroidism, and I educated him on the proper method for taking his medication to ensure optimal absorption, which is on an empty stomach 30 minutes before food. I explained that his lingering respiratory symptoms are due to ongoing inflammation and wheezing, and I recommended increasing his Symbicort use to twice daily. I demonstrated the correct inhaler technique. We also discussed his borderline cholesterol, skin tags, and the benign nature of his ayoub angiomas. I ordered comprehensive blood work to check his thyroid levels, cholesterol, and to screen for diabetes. We will have a follow-up visit in approximately six weeks to review the results and his overall progress. Orders: Orders UA CC w/rflx Micro + Cult 04/03/25 R82.90 - Unspecified abnormal findings in urine TSH reflex Free T4 04/03/25 E03.9 - Hypothyroidism, unspecified Lipid Panel 04/03/25 E78.5 - Hyperlipidemia, unspecified Glucose Random 04/03/25 Z13.1 - Encounter for screening for diabetes mellitus Hemoglobin A1c 04/03/25 Z13.1 - Encounter for screening for diabetes mellitus XR knee RT 2V 04/02/25 M25.561 - Pain in right knee Referrals Dermatology Referral K64.4 - Residual hemorrhoidal skin tags Patient Instructions: - Go for an X-ray of your knee. - Get blood work done to check your thyroid, cholesterol, and sugar levels. - Take your thyroid pill first thing in the morning on an empty stomach and wait at least 30 minutes before eating or drinking anything other than water. - Use your Symbicort inhaler twice a day, including once before bed. - When using your inhaler, breathe all the air out of your lungs, then breathe in slowly and deeply through the inhaler. - Remember to rinse your mouth with water and spit it out after using your inhaler. - Rest your knee for the next two days, but try to move around a little bit. - For your skin tags, you can try an tmnc-ghq-lygazry product first before deciding on seeing a specialist. - The red spots on your chest are harmless and can be left alone. - Schedule a follow-up appointment in about six weeks.
== END 2025-04-02 15:06 | disposition home or self-care (01) ==
LOC: HO.HMCHD 14:16
PROVIDERS: PCP Internal Medicine; Visit Provider Physician Assistant Medical
DX: M25.561 Pain in right knee (principal); E03.9 Hypothyroidism, unspecified; E78.00 Pure hypercholesterolemia, unspecified; R06.02 Shortness of breath; L91.8 Other hypertrophic disorders of the skin; D18.01 Hemangioma of skin and subcutaneous tissue

== ENCOUNTER 2025-04-02 14:15 | Outpatient (REF) | payer BC, SELFPAY ==
--- NOTE | ~2025-04-02 | XR_ITS ---
EXAMINATION: XR KNEE 1-2 VIEWS RIGHT HISTORY: M25.561 - Pain in right knee COMPARISON: There are no prior studies available for comparison. FINDINGS: AP and lateral views of the right knee are submitted. Osseous mineralization is normal. There is no fracture or dislocation. The joint spaces are preserved. The soft tissues are unremarkable. There is no joint effusion. XR/XR knee RT 2V IMPRESSION: Unremarkable examination of the right knee. Electronically signed by: Ender Holm MD 04/02/2025 03:38 PM EST
--- OUTSIDE RECORDS SUMMARY | 2025-04-02 16:32 | XMS_ITS | Patient Health Record ---
Author Organization [facility] Address [address] [place] [address] Care Team Providers Care Digital Photographic Printer Name Role Phone Nicole (RETIRED) Nilesh COLEMAN Primary Care Provide Ender Haq [phone] Allergies Allergen (clinical drug ingredient) Drug/Non Drug Allergy documented on EMR Reaction Allergy Type Onset Date Status amoxicillin Amoxicillin Unknown Drug Allergy Act florecita hay fever (uncoded) Unknown Allergy Active Reason For Referral No Information Medications Medication SIG (Take, Route, Fr equency, Duration) Notes Start Date End Date Status Tamsulosin HCl 0.4 MG Oral; Duration: 30 Active Immunizations Vaccine Route Administration Date [...] Problem Status W/U Status Risk Notes Problem Colon cancer screening (266899744) Colon cancer screening (Z12.11) Active confirmed Problem Diverticular disease of colon (713746854) Diverticulosis of large intestine without perforation or abscess without bleeding (K57.30) Active confirmed Problem Preprocedural examination (814455063119024) Preprocedural examination (Z01.818) Active confirmed Plan Of Treatment Future Test Test Name Order Date COLONOSCOPY 07/01/2022 Insurance Providers Payer Name Payer Address Payer Phone Subscriber Number Group Number Insured Name Patient Relationship to Insured Coverage Start Date Coverage End Date [facility] [address] [place] [address] [phone] [id number] MARIJA OSPINA Self - patient is the insured Medical (General) History Medical History History ICD Code Denies [place],DM,CVA,Lung disease,renal dise ase Surgical History Surgery Date(Month/Year) Right inguinal hernia Dr. Robi Ryan
--- OUTSIDE RECORDS SUMMARY | 2025-04-02 16:32 | XMS_ITS | Clinical Summary ---
Author Organization [facility] Address [address] [place] [address] Care Team Providers Care Technical Administrative Assistant Name Role Phone Unavailable Primary Care Provider [...] of 2) 02/03/2018 COVID-19 Vaccine ( - season) 2025 RSV Vaccine 50 years and old er and Patients (1 - 1-dose 75+ series) 02/03/2043
== END 2025-04-02 14:16 | disposition home or self-care (01) ==
LOC: HO.XRAY 14:15
PROVIDERS: PCP Physician Assistant Medical; Visit Provider Physician Assistant Medical
DX: M25.561 Pain in right knee (principal); E03.9 Hypothyroidism, unspecified; D18.01 Hemangioma of skin and subcutaneous tissue; L91.8 Other hypertrophic disorders of the skin; E78.00 Pure hypercholesterolemia, unspecified; R06.02 Shortness of breath; R82.90 Unspecified abnormal findings in urine; E78.5 Hyperlipidemia, unspecified; K64.4 Residual hemorrhoidal skin tags
CPT/HCPCS: 73560; 96127

== ENCOUNTER → 2025-04-02 15:14 | Outpatient (BNV) | payer BC, SELFPAY | PROVIDERS: PCP Physician Assistant Medical; Visit Provider Radiology Diagnostic Radiology | DX: M25.561 Pain in right knee (principal) | CPT/HCPCS: 73560 ==

== ENCOUNTER 2025-04-03 09:31 | Outpatient (REF) | payer BC, SELFPAY ==
[2025-04-03 10:37] LABS: Appearance Urine Clear; Glucose Urine UA Negative (Negative); PH 8.0 (5.0-9.0); Specific Gravity - Urine 1.015 (1.005-1.025)
--- OUTSIDE RECORDS SUMMARY | 2025-04-03 10:46 | XMS_ITS | Clinical Summary ---
Author Organization [facility] Address [address] [place] [address] Care Team Providers Care Wallpaper Consultant Name Role Phone Unavailable Primary Care Provider [...]
--- OUTSIDE RECORDS SUMMARY | 2025-04-03 10:47 | XMS_ITS | Patient Health Record ---
Author Organization [facility] Address [address] [place] [address] Care Team Providers Care Cone Trucker Name Role Phone Nicole (RETIRED) Nilesh COLEMAN Primary Care Provide Ender Haq [phone] Allergies Allergen (clinical drug ingredient) Drug/Non Drug [...] Status Risk Notes Problem Colon cancer screening (300558343) Colon cancer screening (Z12.11) Active confirmed Problem Diverticular disease of colon (701939895) Diverticulosis of large intestine without perforation or abscess without bleeding (K57.30) Active confirmed Problem Preprocedural examination (705547512294508) Preprocedural examination (Z01.818) Active confirmed Plan Of Treatment Future Test Test Name Order Date COLONOSCOPY 07/01/2022 Insurance Providers Payer Name Payer Address Payer Phone Subscriber Number Group Number Insured Name Patient Relationship to Insured Coverage Start Date Coverage End Date [facility] [address] [place] [address] [phone] [id number] MARIJA OSPINA Self - patient is the insured Medical (General) History Medical History History ICD Code Denies [place],DM,CVA,Lung disease,renal dise ase Surgical History Surgery Date(Month/Year) Right inguinal hernia Dr. Robi Ryan
[2025-04-03 10:51] LABS: Hemoglobin A1C 149.0362 umol/L
[2025-04-03 10:55] LABS: Cholesterol 204 mg/dL (<200); HDL Cholesterol 40 mg/dL (>40); Triglycerides 98 mg/dL (<150)
== END 2025-04-03 09:32 | disposition home or self-care (01) ==
LOC: HO.LAB 09:31
PROVIDERS: PCP Physician Assistant Medical; Visit Provider Physician Assistant Medical
DX: Z13.1 Encounter for screening for diabetes mellitus (principal); R82.90 Unspecified abnormal findings in urine; E03.9 Hypothyroidism, unspecified; E78.5 Hyperlipidemia, unspecified
CPT/HCPCS: 36415; 80061; 81003; 82947; 83036; 84443

== ENCOUNTER 2025-05-07 15:09 | Outpatient (AMB) | payer BC, SELFPAY ==
--- NOTE | 2025-05-07 15:22 | MHC.PC.OV ---
Vital Signs 05/07/25 15:25 Height 5 ft 10 in Weight 174 lb BMI 25.0 BP 116/86 Blood Pressure Location Lt brachial Position Sitting Respiration 18 Pulse 93 Pulse Source Pulse Oximeter Temp 98.5 F Temp Source Temporal Artery Scan Pulse Oximetry (%) 98 Oxygen Delivery Method Room Air Intake Visit Reasons: follow up suzan and knee pain Oncology Coordinator Required: No Accompanied by: Self / Same As Patient Allergies amoxicillin (AMOXICILLIN) Allergy (Unknown, Verified 05/07/25 15:22) HIVES AND THROAT CLOSES Medication List - Last Reconciled 06/11/25 by PRIYANK Jefferson acetaminophen (Tylenol Extra Strength) 500 mg PO Q6H PRN budesonide-formoterol 80-4.5 mcg/actuation 1 puff PO BID 90 days hydroxyzine HCl 10 mg PO BEDTIME levothyroxine 25 mcg PO DAILY Tobacco use date assessed: 04/02/25 Dental Screening Dental Screen Date: 04/02/25 HPI HPI Comments History of Present Illness Details History of Present Illness The patient is a 55 year old male with hypothyroidism, chronic itching, chronic cough presenting for follow-up on multiple issues, including knee pain, cough, and a review of lab results. Regarding the knee pain, an X-ray was negative for a bony problem, suggesting a soft tissue injury. The patient believes he sprained his knee due to his sleeping position, as his mattress has a dip that causes his knee to fall into it, stretching the collateral ligament. His knee is feeling slightly better but remains sore and a little swollen. The patient also reports experiencing muscle cramps ( charley horses ) in his leg or foot, occurring at mixed times, including at night. He notes these cramps sometimes require him to get out of bed and walk around. He has a history of COVID-19, followed by pneumonia a year later. He continues to have a cough and experiences some shortness of breath when going up and down stairs. He has been using an inhaler, which has led to coughing up clear phlegm, but he has been inconsistent with its use. He also mentions having significant central chest pain from coughing, which has improved with Tylenol and ibuprofen but is still sore. Recent lab work shows an A1c of 5.7, which is at the upper limit of the normal range. His thyroid function on medication is stable. His TSH was 3.21. His total cholesterol was 204, and his good cholesterol (HDL) has increased. The patient reports drinking one to two bottles of water and two to three Snapples per day. He has recently been trying to alternate between drinking water and iced tea. Medical History: - Hypothyroidism, on medication. - History of COVID-19 infection. - History of pneumonia, which occurred one year after COVID-19. Medications: - Thyroid pill for hypothyroidism. - Inhaler for cough/lung inflammation. - Tylenol and ibuprofen as needed for chest pain from coughing. Family History: - Mother: Prediabetes Health Maintenance The patient was advised to schedule a follow-up appointment in six months for repeat lab work. He should return sooner if any of his conditions change before then. His A1c of 5.7 places him at the upper limit of normal, and does not meet the criteria for prediabetes. Social History - Fluid Intake: Reports drinking about one to two 16-ounce bottles of water and two or three Snapple iced teas per day. - Diet: Reports eating chicken and is trying to improve his diet. - Exercise: Reports moving around more at his job. Results - Imaging: - Knee X-ray: Negative for bony abnormality. - Labs: - Hemoglobin A1c: 5.7%. - Thyroid function: tests were better and within goal on medication. - Total Cholesterol: 204 mg/dL. - HDL Cholesterol: Level increased. Patient was informed and verbally consented to the use of an ambient scribe for clinic note documentation during this visit. REPLACED BY [facility] Medical History (Updated 06/11/25 @ 10:20 by PRIYANK Jefferson) Ayoub angioma Chronic cough Diabetes mellitus screening Hyperlipidemia Hypothyroid Right knee pain Skin tags, multiple acquired Surgical History Appendicitis H/O hernia repair History of colonoscopy (~08/28/22) Family History (Updated 04/02/25 @ 14:30 by Sherrell England MA) Father Lung cancer Mother No problems noted. 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 Cognitive needs: No Hearing needs: No Vision needs: Yes (Rx glasses) Questionnaire Thrive Questionnaire Date Thrive assessed: 04/02/25 AUDIT C Alcohol Use Questionnaire (AUDIT-C) 1. How often do you have a drink containing alcohol?: Never 3. How often do you have six or more drinks on one occasion?: Never Total Score: 0 DIONNA-7 AMB Questionnaire DIONNA-7 Date DIONNA - 7 assessed: 04/02/25 Source: Developed by Drs. Ender Sheth, Haily Gonzales, Mulugeta Shepherd and colleagues, with an educational darlin from [employer]. Review of Systems Narrative Review of Systems - Musculoskeletal: Reports sore and slightly swollen knee. - Reports intermittent muscle cramps in the leg or foot. - Respiratory: Reports a persistent cough with production of clear phlegm. - Reports mild dyspnea on exertion, such as when using stairs. - Cardiovascular: Reports musculoskeletal chest pain in the center of his chest, related to coughing. - Constitutional: Reports feeling tired from work. - Neurological: Reports getting headaches if he does not drink enough iced tea. Physical exam (Primary Care) Vital Signs: Last Vital Signs Temp 98.5 F 05/07/25 15:25 Pulse 93 05/07/25 15:25 Resp 18 05/07/25 15:25 BP 116/86 05/07/25 15:25 Pulse Ox 98 05/07/25 15:25 Oxygen Delivery Method Room Air 05/07/25 15:25 BMI result Body Mass Index 25.0 GENERAL Well developed, Well nourished, in no apparent distress HEENT Head-Normocephalic Eyes- PERRLA, EOMI, Conjuctiva clear, lids WNL Ears- Canals clear, TMs WNL Mouth/Throat-No lesions, no erythema, no exudate Neck- Supple, No lymphadenopathy, thyroid WNL RESPIRATORY Normal I:E, rhonchi, clear to auscultation CARDIOVASCULAR Regular, rate and rhythm, No murmurs or rubs GASTROINTESTINAL Soft, nontender, normal bowel sounds, no masses MUSCULOSKELETAL Right knee- mild swelling, full ROM, tender at joint line, small abrasion on knee NEUROLOGICAL Gait normal PSYCHIATRIC Oriented to person, place and time Mood and affect WNL Appearance WNL Speech WNL Thought processes WN Tobacco/Smoking Status: Tobacco use Status Tobacco use date assessed 04/02/25 05/07/25 15:23 Patient Tobacco Use Status Never used Tobacco 05/07/25 15:23 e-Cigarette/Vaping Use Never Used 05/07/25 15:23 Thrive Assessment: Date of Thrive Assessment Date Thrive assessed 04/02/25 05/07/25 15:23 Narrative Physical Exam - Lungs: Clear to auscultation bilaterally. Coding Level of Care Code Established Pt Est Pt Level 4 (18470) Established Pt Add On Problem Visit Only Patient Type Established Diagnoses Pure hypercholesterolemia E78.00 Hyperlipidemia type: pure hypercholesterolemia Acquired hypothyroidism E03.9 Hypothyroidism type: acquired Right knee pain M25.561 Chronic cough R05.3 Muscle cramps R25.2 Time Spent (min) 35 Comment Time spent on lab review, H&P, Patient education and orders. Assessment & Plan Assessment & Plan (1) Hyperlipidemia: Code(s): E78.5 - Hyperlipidemia, unspecified Category: Medical Qualifiers: Hyperlipidemia type: pure hypercholesterolemia Qualified Code(s): E78.00 - Pure hypercholesterolemia, unspecified Plan: Will continue diet and exercise. Will recheck labs in 6 months (2) Hypothyroid: Comment: TSH was 3.21 Code(s): E03.9 - Hypothyroidism, unspecified Category: Medical Qualifiers: Hypothyroidism type: acquired Qualified Code(s): E03.9 - Hypothyroidism, unspecified Plan: Controlled. Patient will continue current medications. Will monitor. Patient will follow up in 6 months with labs (3) Right knee pain: Code(s): M25.561 - Pain in right knee Category: Medical Plan: Will watch for now. Patient to follow up in 6 months or sooner if symptoms persist or worsen. (4) Chronic cough: Code(s): R05.3 - Chronic cough Category: Medical Plan: Use inhaler as prescribed. Patient to follow up as needed if symptoms persist or worsen. (5) Muscle cramps: Code(s): R25.2 - Cramp and spasm Plan: Patient to increase fluids. Patient to follow up as needed if symptoms persist or worsen. Plan Plan Patient was informed and verbally consented to the use of an ambient scribe for clinic note documentation during this visit. 1. Knee Sprain The patient's knee pain is attributed to a soft tissue sprain of a collateral ligament, likely caused by his sleeping posture. An X-ray has ruled out a bony injury. The patient plans to get a new mattress to resolve the issue. 2. Muscle Cramps The patient's muscle cramps may be due to dehydration or muscle overuse from compensating for his knee injury. The patient was advised to increase his water intake to three or four 16-ounce bottles daily to address potential dehydration. 3. Chronic Cough The patient's lung inflammation and cough are likely sequelae of his prior COVID-19 and pneumonia infections. He was advised to continue using his inhaler for another couple of weeks to help his body clear the remaining inflammation and mucus, and he was counseled on the importance of consistent use. Lungs were clear on examination. 4. Hypothyroidism The patient's thyroid levels are stable on his current medication. He will continue the thyroid medication indefinitely and was reassured that this condition is not related to cancer risk or diabetes. 5. Hypercholesterolemia The patient's total cholesterol of 204 is slightly above the target of 200, though his HDL has improved. He was advised to continue his diet, which includes chicken and vegetables, to further lower his cholesterol. Discussion Notes I reviewed the patient's recent knee x-ray, which was normal, and we discussed that his knee pain is likely from a ligament sprain caused by his sleeping position. We discussed that his muscle cramps could be related to dehydration or overuse from favoring his injured knee, and I advised him to increase his water intake. I explained his lab results, noting his A1c is 5.7, which is normal, and that his cholesterol has improved but could be lower, and his thyroid is well-controlled on medication. I advised him to continue the thyroid medication, explaining it is a hormone replacement and likely a lifelong need, and reassured him it is not related to cancer. We discussed that his chronic cough is likely post-viral inflammation from COVID and pneumonia. I recommended he continue the inhaler for another two weeks to help resolve this, and we discussed that while I hope his breathing will improve, some residual effects could be long-term. I recommended a follow-up visit in six months for repeat labs but advised him to come in sooner if anything changes. Patient Instructions - Consider getting a new mattress to prevent your knee from being strained while you sleep. - To help with muscle cramps, make sure you are drinking enough water. Try to drink three or four 16-ounce bottles a day. - Continue to take your inhaler as prescribed every day for the next couple of weeks to help your lungs heal. - Continue taking your thyroid medication every day. You will likely need to take this long-term. - Continue with your diet improvements, including eating chicken, fish, and vegetables, to help lower your cholesterol. - Schedule a follow-up appointment in six months to repeat your blood tests. If anything changes or gets worse before then, please come back to be seen sooner.
[2025-05-07 15:25] VITALS: BP 116/86; PULSE 93; RESP 18; TEMP 36.9; O2SAT 98; BMI 25.0
--- OUTSIDE RECORDS SUMMARY | 2025-05-08 00:39 | XMS_ITS | Clinical Summary ---
Author Organization [facility] Address [address] [place] [address] Care Team Providers Care Site Head Name Role Phone Unavailable Primary Care Provider [...]
== END 2025-05-07 15:55 | disposition home or self-care (01) ==
LOC: HO.HMCHD 15:10
PROVIDERS: PCP Physician Assistant Medical; Visit Provider Physician Assistant Medical
DX: E78.00 Pure hypercholesterolemia, unspecified (principal); E03.9 Hypothyroidism, unspecified; M25.561 Pain in right knee; R05.3 Chronic cough; R25.2 Cramp and spasm